=== PATIENT | female | born 1935 | race Hispanic/Latino ===

== ENCOUNTER 2018-06-29 19:53 | Emergency (ER) | payer OTHER, MEDICARE ==
[2018-06-29] MEDS ORDERED: NA CHLORIDE 0.9% 2,000 ML ONE (20:55)
--- NOTE | 2018-06-29 21:03 | RAD REPORT ---
EXAM DESCRIPTION: Ernie Single View06/29/2018 8:39 pm CLINICAL HISTORY: cough COMPARISON: 2008 FINDINGS: The lungs appear clear of acute infiltrate. The heart is normal size IMPRESSION: No acute abnormalities displayed
[2018-06-29 21:16] LABS: Albumin 4.3 g/dL (3.4-5.0); Bilirubin Direct 0.2 mg/dL (0-0.2); Bilirubin Total 0.6 mg/dL (0.2-1.0); Potassium 3.8 mmol/L (3.5-5.1); Protein, Total 8.3 g/dL (6.4-8.2); Troponin (Emerg Dept Use Only) 0.02 ng/mL (0.0-0.045)
[2018-06-29 21:44] LABS: Absolute Lymphocytes (CBC) 0.3 K/uL (0.7-4.9); Absolute Monocytes 0.7 K/uL (0.1-1.3); Absolute Neutrophil 5.1 K/uL (1.8-8.0); Basophils % 0.4 % (0-1.3); Eosinophils % 0.6 % (0-4.4); Hematocrit 42.4 % (36.0-45.0); Lymphocytes % 5.3 % (15.3-44.8); MPV 8.4 fL (7.6-11.3); Monocytes % 11.9 % (3.3-12.3); RBC Red Blood Cell Count 4.81 M/uL (3.86-4.86)
[2018-06-29 22:53] LABS: Urine Blood TRACE (NEG); Urine Glucose NEGATIVE (NEG); Urine Protein 2+ (NEG)
[2018-06-29 23:45] LABS: Urine Bacteria LOADED /HPF (<20); Urine Culture Reflex Order REFLEXED
--- NOTE | 2018-06-30 00:03 | EDPHYS ---
Physician Documentation [facility] Name: Desiree Pablo Age: 83 yrs Sex: Female : 1935 Arrival Date: 06/29/2018 Time: 19:56 Bed 28 Private MD: ED Physician Mikhail Javier HPI: 06/29 20:26 This 83 yrs old Female presents to ER via Wheelchair with complaints of Flu ps1 Symptoms. 20:26 patient states that she has not been feeling well over the last 3 days. Went to the ps1 and was flu negative but sent over for CXR 2/2 hearing rales on exam. Patient has increased fatigue and malaise over the last 24 hours. Not requiring O2. Got the flu shot this year. Has a cough. BP is elevated and known to patient, currently on antihypertensives and not c/o symptoms associated with it. . Historical: - Allergies: 20:26 No Known Allergies; tl3 - Home Meds: 20:26 Janumet XR 100-1,000 mg oral TM24 1 tab once daily for Type 2 Diabetes Mellitus tl3 [Active]; metoprolol tartrate 100 mg Oral tab 1 tab once daily [Active]; duloxetine 60 mg oral cpDR 1 cap once daily [Active]; atorvastatin 40 mg oral tab 1 tab once daily [Active]; levothyroxine 75 mcg tab 1 tab once daily for Hypothyroidism [Active]; losartan 100 mg oral tab 1 tab once daily for Hypertension [Active]; - PMHx: 20:26 Hypertension; Diabetes - NIDDM; Headaches; Hyperlipidemia; Hypothyroidism; tl3 - Immunization history:: Adult Immunizations up to date. - Social history:: Smoking status: Patient/guardian denies using tobacco, never smoked. - Ebola Screening: : No symptoms or risks identified at this time. ROS: 20:26 Eyes: Negative for injury, pain, redness, and discharge, Abdomen/GI: Negative for ps1 abdominal pain, nausea, vomiting, diarrhea, and constipation, Back: Negative for injury and pain, Skin: Negative for injury, rash, and discoloration, Neuro: Negative for headache, weakness, numbness, tingling, and seizure, Psych: Negative for depression, anxiety, suicide ideation, homicidal ideation, and hallucinations. 20:26 Constitutional: Positive for body aches, fatigue, malaise, poor PO intake. 20:26 Respiratory: Positive for cough, "sounds productive". Exam: 20:29 Constitutional: This is a well developed, well nourished patient who is awake, alert, ps1 and in no acute distress. Head/Face: Normocephalic, atraumatic. Eyes: Pupils equal round and reactive to light, extra-ocular motions intact. Lids and lashes normal. Conjunctiva and sclera are non-icteric and not injected. Chest/axilla: Normal chest wall appearance and motion. Nontender with no deformity. No lesions are appreciated. Cardiovascular: Regular rate and rhythm. No gallops, murmurs, or rubs. Normal PMI, no JVD. No pulse deficits. Abdomen/GI: Soft, non-tender, with normal bowel sounds. No distension or tympany. No guarding or rebound. No evidence of tenderness throughout. Skin: Warm, dry with normal turgor. Normal color with no rashes, no lesions, and no evidence of cellulitis. MS/ Extremity: Pulses equal, no cyanosis. Neurovascular intact. Full, normal range of motion. Neuro: Awake and alert, GCS 15, oriented to person, place, time, and situation. Cranial nerves II-XII grossly intact. Sensory grossly intact. 20:29 Respiratory: the patient does not display signs of respiratory distress, Respirations: normal, Breath sounds: rhonchi, are heard in the right lower lobe and left lower lobe. Vital Signs: 20:26 BP 204 / 99; Pulse 91; Resp 18; Temp 98.8(O); Pulse Ox 94% on R/A; Weight 68.04 kg; tl3 21:15 BP 193 / 86; Pulse 93; Resp 18; Pulse Ox 94% on R/A; tl3 22:15 BP 152 / 72; Pulse 91; Resp 18; Pulse Ox 96% on R/A; tl3 23:09 BP 160 / 75; Pulse 93; Resp 18; Pulse Ox 97% on R/A; tl3 03 00:15 BP 155 / 76; Pulse 92; Resp 18; Pulse Ox 95% on R/A; ca1 MDM: 06/29 20:24 Patient medically screened. ps1 06/29 20:23 Order name: Basic Metabolic Panel; Complete Time: 21:19 ps1 06/29 20:23 Order name: Blood Culture Adult (2) ps1 06/29 20:23 Order name: CBC with Diff; Complete Time: 22:07 ps1 06/29 20:23 Order name: LFT's; Complete Time: 21:19 ps1 06/29 20:23 Order name: Lipase; Complete Time: 21:19 ps1 06/29 20:23 Order name: Procalcitonin; Complete Time: 21:36 ps1 06/29 20:23 Order name: Troponin (emerg Dept Use Only); Complete Time: 21:19 ps1 06/29 20:24 Order name: Flu ps1 06/29 20:25 Order name: Influenza Screen (A ; Complete Time: 00:12 EDMS 06/29 22:25 Order name: UA MICROSCOPIC; Complete Time: 23:48 tl3 06/29 22:26 Order name: Urine Dipstick--Ancillary (enter results); Complete Time: 22:59 mw2 06/29 23:47 Order name: Urine Culture EDMS 06/29 20:23 Order name: Chest Single View XRAY; Complete Time: 21:19 ps1 06/29 20:23 Order name: Accucheck; Complete Time: 21:38 ps1 06/29 20:23 Order name: Cardiac monitoring; Complete Time: 21:02 ps1 06/29 20:23 Order name: EKG - Nurse/Tech; Complete Time: 21:37 ps1 06/29 20:23 Order name: IV Saline Lock - Large Bore; Complete Time: 20:52 ps1 06/29 20:23 Order name: Labs collected and sent; Complete Time: 20:52 ps1 06/29 20:23 Order name: O2 Per Protocol; Complete Time: 20:52 ps1 06/29 20:23 Order name: O2 Sat Monitoring; Complete Time: 20:52 ps1 06/29 20:23 Order name: Urine Dipstick-Ancillary (obtain specimen); Complete Time: 22:25 ps1 Administered Medications: 20:45 Drug: NS 0.9% (30 ml/kg) 30 ml/kg Route: IV; Rate: bolus; Site: left antecubital; tl3 Delivery: Primary tubing; 23:10 Follow up: IV Status: Completed infusion; IV Intake: 2000ml tl3 23:55 Drug: Rocephin - (cefTRIAXone) 1 grams Route: IVPB; Infused Over: 30 mins; Site: left ca1 antecubital; 06/30 00:02 Follow up: IV Status: Completed infusion; IVP per Pharmacy protocol ca1 Point of Care Testing: Blood Glucose: 06/29 20:45 Blood Glucose: 146 mg/dL; tl3 Ranges: Critical Glucose Levels:Adult <50 mg/dl or >400 mg/dl <40 mg/dl or >180 mg/dl Disposition: 06/30/18 00:02 Discharged to Home. Impression: Acute cystitis without hematuria. - Condition is Stable. - Discharge Instructions: Urinary Tract Infection, Adult. - Prescriptions for Keflex 500 mg Oral Capsule - take 1 capsule by ORAL route every 8 hours for 5 days; 15 capsule. Guaifenesin AC 10- 100 mg/5 mL Oral Liquid - take 10 milliliter by ORAL route every 4 hours As needed; 240 milliliter. - Medication Reconciliation Form, Thank You Letter, Antibiotic Education, Prescription Opioid Use form. - Follow up: Private Physician; When: As needed; Reason: Recheck today's complaints, Continuance of care, Re-evaluation by your physician. Follow up: Emergency Department; When: As needed; Reason: Worsening of condition. - Problem is new. - Symptoms have improved. Signatures: Dispatcher [employer] [facility] Mikhail Javier MD MD ps1 Skye Llanes, MIKAL RN tl3 Oriana Resendiz RN RN ca1 Corrections: (The following items were deleted from the chart) 20:29 20:26 patient states that she has not been feeling well over the last 3 days. Went to [facility] the and was flu negative but sent over for CXR 2/2 hearing rales on exam. Patient has increased fatigue and malaise over the last 24 hours. Not requiring O2. Got the flu shot this year. Has a cough. . [facility] 22:41 20:24 UA MICROSCOPIC+U.LAB.BRZ ordered. [facility] EDMT 06/30 00:28 00:02 06/30/2018 00:02 Discharged to Home. Impression: Acute cystitis without ca1 hematuria. Condition is Stable. Forms are Medication Reconciliation Form, Thank You Letter, Antibiotic Education, Prescription Opioid Use. Follow up: Private Physician; When: As needed; Reason: Recheck today's complaints, Continuance of care, Re-evaluation by your physician. Follow up: Emergency Department; When: As needed; Reason: Worsening of condition. Problem is new. Symptoms have improved. ps1
--- NOTE | 2018-06-30 00:03 | ER ---
Nurse's Notes [facility] Name: Desiree Pablo Age: 83 yrs Sex: Female : 1935 Arrival Date: 06/29/2018 Time: 19:56 Bed 28 Private MD: Diagnosis: Acute cystitis without hematuria Presentation: 06/29 20:17 Presenting complaint: Patient states: started coughing on Wednesday, progressively tl3 getting worse over the last couple of days, seen at [facility] Urgent care screened for flu (was negative), they heard crackles to the bases of her lungs and wanted her to get a chest x-ray. Transition of care: patient was not received from another setting of care. Onset of symptoms was June 2018. Risk Assessment: Do you want to hurt yourself or someone else? Patient reports no desire to harm self or others. Initial Sepsis Screen: Does the patient meet any 2 criteria? No. Patient's initial sepsis screen is negative. Does the patient have a suspected source of infection? No. Patient's initial sepsis screen is negative. Care prior to arrival: None. 20:17 Method Of Arrival: Wheelchair tl3 20:17 Acuity: ANANT 3 tl3 Triage Assessment: 20:26 General: Appears uncomfortable, slender, well groomed, well developed, well nourished, tl3 Behavior is calm, cooperative, appropriate for age. Pain: Denies pain. EENT: No signs and/or symptoms were reported regarding the EENT system. Neuro: Level of Consciousness is awake, alert, obeys commands. Cardiovascular: Patient's skin is warm and dry. Respiratory: Airway is patent Respiratory effort is even, unlabored, Respiratory pattern is regular, symmetrical, Breath sounds with crackles bilaterally. in left lower lobe, right lower lobe, left posterior lower lobe and right posterior lower lobe. GI: No signs and/or symptoms were reported involving the gastrointestinal system. : No signs and/or symptoms were reported regarding the genitourinary system. Derm: No signs and/or symptoms reported regarding the dermatologic system. Musculoskeletal: No signs and/or symptoms reported regarding the musculoskeletal system. Historical: - Allergies: 20:26 No Known Allergies; tl3 - Home Meds: 20:26 Janumet XR 100-1,000 mg oral TM24 1 tab once daily for Type 2 Diabetes Mellitus tl3 [Active]; metoprolol tartrate 100 mg Oral tab 1 tab once daily [Active]; duloxetine 60 mg oral cpDR 1 cap once daily [Active]; atorvastatin 40 mg oral tab 1 tab once daily [Active]; levothyroxine 75 mcg tab 1 tab once daily for Hypothyroidism [Active]; losartan 100 mg oral tab 1 tab once daily for Hypertension [Active]; - PMHx: 20:26 Hypertension; Diabetes - NIDDM; Headaches; Hyperlipidemia; Hypothyroidism; tl3 - Immunization history:: Adult Immunizations up to date. - Social history:: Smoking status: Patient/guardian denies using tobacco, never smoked. - Ebola Screening: : No symptoms or risks identified at this time. Screenin:29 Abuse screen: Denies threats or abuse. Nutritional screening: No deficits noted. tl3 Tuberculosis screening: No symptoms or risk factors identified. Fall Risk None identified. Assessment: 20:29 Reassessment: No changes from previously documented assessment. tl3 21:15 Reassessment: No changes from previously documented assessment. Patient and/or family tl3 updated on plan of care and expected duration. Pain level reassessed. Patient is alert, oriented x 3, equal unlabored respirations, skin warm/dry/pink. IV infusing without difficulty, family at bedside. 22:15 Reassessment: Patient appears in no apparent distress at this time. No changes from tl3 previously documented assessment. Patient and/or family updated on plan of care and expected duration. Pain level reassessed. Patient is alert, oriented x 3, equal unlabored respirations, skin warm/dry/pink. pt assisted bedside commode. 23:09 Reassessment: Patient appears in no apparent distress at this time. No changes from tl3 previously documented assessment. Patient and/or family updated on plan of care and expected duration. Pain level reassessed. Patient is alert, oriented x 3, equal unlabored respirations, skin warm/dry/pink. 06/30 00:15 Reassessment: Patient appears in no apparent distress at this time. Patient and/or ca1 family updated on plan of care and expected duration. Pain level reassessed. Patient is alert, oriented x 3, equal unlabored respirations, skin warm/dry/pink. Vital Signs: 06/29 20:26 BP 204 / 99; Pulse 91; Resp 18; Temp 98.8(O); Pulse Ox 94% on R/A; Weight 68.04 kg; tl3 21:15 BP 193 / 86; Pulse 93; Resp 18; Pulse Ox 94% on R/A; tl3 22:15 BP 152 / 72; Pulse 91; Resp 18; Pulse Ox 96% on R/A; tl3 23:09 BP 160 / 75; Pulse 93; Resp 18; Pulse Ox 97% on R/A; tl3 03 00:15 BP 155 / 76; Pulse 92; Resp 18; Pulse Ox 95% on R/A; ca1 ED Course: 06/29 19:56 Patient arrived in ED. ds1 20:09 Skye Llanes, MIKAL is Primary Nurse. tl3 20:12 Mikhail Javier MD is Attending Physician. ps1 20:20 Triage completed. tl3 20:26 Arm band placed on right wrist. tl3 20:29 Patient has correct armband on for positive identification. Placed in gown. Bed in low tl3 position. Call light in reach. Side rails up X 1. Pulse ox on. NIBP on. 20:29 No provider procedures requiring assistance completed. tl3 20:37 X-ray completed. Portable x-ray completed in exam room. Patient tolerated procedure ls3 well. 20:38 Chest Single View XRAY In Process Unspecified. EDMS 20:46 Inserted saline lock: 22 gauge in left antecubital area, using aseptic technique. Blood ca1 collected. 20:48 First set of blood cultures drawn by me. ca1 21:37 Flu Sent. tl3 06/30 00:27 IV discontinued, intact, bleeding controlled, No redness/swelling at site. Pressure ca1 dressing applied. Administered Medications: 06/29 20:45 Drug: NS 0.9% (30 ml/kg) 30 ml/kg Route: IV; Rate: bolus; Site: left antecubital; tl3 Delivery: Primary tubing; 23:10 Follow up: IV Status: Completed infusion; IV Intake: 2000ml tl3 23:55 Drug: Rocephin - (cefTRIAXone) 1 grams Route: IVPB; Infused Over: 30 mins; Site: left ca1 antecubital; 06/30 00:02 Follow up: IV Status: Completed infusion; IVP per Pharmacy protocol ca1 Point of Care Testing: Blood Glucose: 06/29 20:45 Blood Glucose: 146 mg/dL; tl3 Ranges: Intake: 23:10 IV: 2000ml; Total: 2000ml. tl3 Outcome: 06/30 00:02 Discharge ordered by . ps1 00:27 Discharged to home via wheelchair. ca1 00:27 Condition: stable 00:27 Discharge instructions given to patient, family, daughters Instructed on discharge instructions, follow up and referral plans. medication usage, Demonstrated understanding of instructions, follow-up care, medications, Prescriptions given X 2. 00:28 Patient left the ED. ca1 Addendum: 07/05/2018 09:10 Addendum: Culture Results: Positive urine culture. Contacted pt [id number] per a a5 Iain Page, [employer] and pt states symptoms have improved, pt also states she has follow-up appointment with Dr. Haney this morning. Urine Culture results faxed to Dr. Haney per pt's request. Signatures: Dispatcher [facility] Scha[facility], Jeri ds1 Anni Gonzales, RN RN aa5 Mikhail Javier MD MD ps1 Skye Llanes RN RN tl3 Luis Miguel Pedro ls3 Oriana Resendiz, RN RN ca1 Corrections: (The following items were deleted from the chart) 06/29 20:42 20:26 BP 204 / 99; Pulse 91bpm; Resp 18bpm; Pulse Ox 94% RA; Temp 98.8F Oral; tl3 tl3
[2018-06-30] MEDS ORDERED: CEFTRIAXONE/SWI 1gm 1 GM/10 ML SYR ONE (00:08)
--- NOTE | 2018-06-30 17:25 | EKG ---
Test Date: 2018-06-29 Test Time: 21:09:45 Watch Supervisor: MEASUREMENT RESULTS: Intervals: Rate: 94 WV: 186 QRSD: 74 QT: 410 QTc: 512 [place]: P: 66 WV: 186 QRS: 29 T: 49 INTERPRETIVE STATEMENTS: Normal sinus rhythm Nonspecific ST abnormality Prolonged QT Abnormal ECG Compared to ECG 10/29/2008 12:35:41 ST (T wave) deviation now present Prolonged QT interval now present Electronically Signed On 06-30-18 17:24:48 [employer] by Sekou Luo
== END 2018-06-30 00:28 | disposition home or self-care (01) ==
LOC: ER 19:53
DX: N30.00 Acute cystitis without hematuria (principal); I10 Essential (primary) hypertension; E11.9 Type 2 diabetes mellitus without complications; E03.9 Hypothyroidism, unspecified; E78.5 Hyperlipidemia, unspecified
CPT/HCPCS: 96365; 93005; 87040 ×2; 87088; 85025; 87086; 80048; 36415; 82962; 80076; 87077; 87186; 84484; 83690; 84145; 87804 ×2; 71045; 96375; 99284; 96366; J0696; J7030; 81003; 81015

== ENCOUNTER 2021-11-05 11:00 | Emergency (ER) | payer MEDICARE, OTHER ==
--- NOTE | 2021-11-05 11:34 | RAD REPORT ---
EXAM DESCRIPTION: CT - Ct Stroke Brain Wo Cont - 11/05/2021 11:25 am CLINICAL HISTORY: Left-sided weakness COMPARISON: none TECHNIQUE: Computed axial tomography of the head was obtained. All CT scans are performed using dose optimization technique as appropriate and may include automated exposure control or mA/KV adjustment according to patient size. FINDINGS: An intracranial bleed is not seen . The ventricles are normal in caliber. 6 millimeter peripherally calcified structure abuts the left sutherland perior orbital rim. There is no surrounding edema. It probably represents a meningioma. No extra-axial fluid collection is noted. Mild cerebral atrophy Mild low-density within periventricular, deep and subcortical white matter likely ischemic changes se condary to small vessel disease Fluid within the sinuses/ mastoids is not seen. IMPRESSION: No acute intracranial abnormality is seen. If patient's symptoms persist MRI of the bra in would be recommended. Tessa from the emergency Room was notified her approximately 11:13 a.m. November 05, 2021
[2021-11-05 12:00] LABS: Lymphocytes % 11.2 % (15.3-44.8); MCV 87.9 fL (80-100); MPV 8.1 fL (7.6-11.3); RBC Red Blood Cell Count 4.78 M/uL (3.86-4.86)
[2021-11-05 12:06] LABS: Potassium 4.7 mmol/L (3.5-5.1)
[2021-11-05 12:47] LABS: Protime INR 0.91
--- NOTE | 2021-11-05 12:51 | RAD REPORT ---
EXAM DESCRIPTION: RAD - Chest Single View - 11/05/2021 12:33 pm CLINICAL HISTORY: stroke protocol COMPARISON: Two view chest June 2018 TECHNIQUE: AP portable chest image was obtained 11/05/2021 12:33 pm . FINDINGS: Lung volumes are decreased compared to the 2019 study. Right hemidiaphragm again noted to be elevated relative to the left. No acute lung parenchymal process. Heart and vasculature are normal. No measurable pleural effusion and no pneumothorax. No acute bony abnormality seen. No acute aortic findings suspected. IMPRESSION: No acute cardiopulmonary process. No significant change from comparison study.
[2021-11-05] MEDS ORDERED: NA CHLORIDE 0.9% 500 ML ONE ×2 (13:31→16:53)
--- NOTE | 2021-11-05 13:56 | RAD REPORT ---
EXAM DESCRIPTION: MRI - Brain Wo Cont - 11/05/2021 1:25 pm CLINICAL HISTORY: Left leg weakness COMPARISON: Ct Stroke Brain Wo Cont dated 11/05/2021 TECHNIQUE: Sagittal T1-weighted images were obtained along with axial PD, heavily T2-weighted and T2 -FLAIR images. Axial DWI and ADC mapping sequences were also obtained along with coronal heavily T2-w eighted images. FINDINGS: No intracranial hemorrhage is present. There is no mass, edema or shift of midline structu res. Diffusion-weighted imaging shows several 7 mm or less sized areas of abnormal signal in the righ t cerebral hemisphere at the parietal lobe and frontal parietal junction. These all have correspondin g areas of diminished signal on ADC mapping. These changes are present in the setting of a mild to mo derate cerebral white matter chronic ischemic pattern. Moderate severity for age atrophy is present. Ventricles are in proportion to the amount of volume loss. Diffusion sequences show 2 questionable fo ci of signal abnormality in the posterolateral aspect of the left cerebellum. No definitive ADC mappi ng hypointense correlate. Cerebellum volume loss is minimal. Thalamus, basal ganglia and brainstem ch ronic ischemic changes are very minimal or absent. CSF along the right cerebellopontine angle is more prominent than on the left side. Signal is isoint ense to CSF on all sequencing. This is not a clearly defined mass and may be normal asymmetry. Nunez-m atter/white matter junction is preserved. Signal voids are seen as a normal finding in the major intr acranial vessels. No globe or orbital content abnormality seen. No sella or supra sella acute finding. Mastoid air cells and paranasal sinuses are clear. 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 No associated mass effect or ed donell. Two punctate areas of posterolateral left cerebellum signal abnormality on diffusion-weighted imaging are not definitive for acute CVA. Underlying moderate severity atrophy and moderate severity cerebral chronic ischemic change.
--- NOTE | 2021-11-05 14:20 | ER ---
Nurse's Notes [facility] [place] [place] [facility] Name: Desiree Pablo Age: 86 yrs Sex: Female : 1935 Arrival Date: 11/05/2021 Time: 11:06 Bed 2 Private MD: Diagnosis: Cerebral infarction, unspecified-Right cerebral white matter, parietal lobe and frontal parietal junction Presentation: 11/05 11:04 Chief complaint: EMS states: Pt reports that she his her L lower leg with her walker ha1 this morning at approximately 0830 and shortly after noticed her L foot felt heavy. Family member stated that patient seemed to be leaning to the L and all of these symptoms began lasted for 30 minutes. Pt has no complaints at this time other than tenderness to L lower extremity. NIHSS 0 upon arrival to ED. 11:04 Coronavirus screen: Client denies travel out of the [place] in the last 14 days. Ebola ss Screen: Patient denies exposure to infectious person. Patient denies travel to an Ebola-affected area in the 21 days before illness onset. No acute neurological deficit is noted. The patients blood glucose was checked before arriving to the hospital and was found to be normal. Initial Sepsis Screen: Does the patient meet any 2 criteria? No. Patient's initial sepsis screen is negative. Does the patient have a suspected source of infection? No. Patient's initial sepsis screen is negative. Risk Assessment: Do you want to hurt yourself or someone else? Patient reports no desire to harm self or others. Onset of symptoms was November 05, 2021 at 08:30. 11:04 Method Of Arrival: EMS: [facility] ss 11:04 Acuity: ANANT 2 ss Stroke Activation: Symptom onset < 3 hours Physician: Stroke Attending; Name: ; Notified At: ; Arrived At: Physician: Chief Stroke Resident; Name: ; Notified At: ; Arrived At: Physician: Stroke Resident; Name: ; Notified At: ; Arrived At: Physician: ED Attending; Name: ; Notified At: ; Arrived At: Physician: ED Resident; Name: ; Notified At: ; Arrived At: Historical: - Allergies: 11:20 Iodine; ha1 - PMHx: 11:20 Diabetes - NIDDM; Headaches; Hyperlipidemia; Hypertension; Hypothyroidism; ha1 - Social history:: Smoking status: Patient denies any tobacco usage or history of. Screenin:04 VAN Screening: Arm Drift: Patient shows no arm weakness. Visual Disturbance: No visual ss disturbance noted. Aphasia: No aphasia noted. Neglect: No neglect noted. Patient has been NPO before screening. The patient is alert, able to follow commands. The patient does not exhibit slurred or garbled speech The patient is not exhibiting difficulty speaking. The patient does not exhibit difficulty understanding words. The patient is able to swallow own secretions with no drooling or need for suction. The patient did not tolerate one teaspoon of water. Drooling, immediate coughing, gurgling, or clearing of the throat was noted. The patient tolerated 90mL of water. No drooling, immediate coughing, gurgling, or clearing of the throat was noted. The patient passed the bedside swallow screening. Oral medications may be given as ordered. Contact Physician for further diet orders. 11:38 Abuse screen: Denies threats or abuse. Denies injuries from another. Nutritional ss screening: No deficits noted. Tuberculosis screening: Never had TB. Fall Risk None identified. Assessment: 11:04 VAN Scoring: Visual Disturbance: No visual disturbance noted. Aphasia: No aphasia ss noted. Neglect: No neglect noted. TNKase (Tenecteplase) Screening: Contraindications: Other: No deficits at this time. 11:30 General: Appears in no apparent distress. comfortable, Behavior is calm, cooperative, ss Denies fever, feeling ill, fatigue, chills. Pain: Complains of pain in medial aspect of left calf Pain currently is 2 out of 10 on a pain scale. Quality of pain is described as tender, Pain began this aM Is continuous. Neuro: Level of Consciousness is awake, alert, obeys commands, Oriented to person, place, time, situation, Used Car Make Ready Mechanic are equal bilaterally Moves all extremities. Full function Speech is normal, Facial symmetry appears normal, Pupils are PERRLA, Intact. Cardiovascular: Capillary refill < 3 seconds is brisk in bilateral fingers Patient's skin is warm and dry. Respiratory: Airway is patent Trachea midline Respiratory effort is even, unlabored, Respiratory pattern is regular, symmetrical. GI: Abdomen is non-distended. Derm: Skin is pink, warm \T\ dry. Musculoskeletal: HX of scoliosis. Deformity noted to back that is consistent with hx. 11:30 : No signs and/or symptoms were reported regarding the genitourinary system. ss 13:12 Reassessment: Pt to MRI now VIA wheelchair. ss 14:30 Patient has been NPO before screening. The patient is alert, and able to follow ld1 commands. The patient does not exhibit slurred or garbled speech. The patient is not exhibiting difficulty speaking. The patient does not exhibit difficulty understanding words. The patient is able to swallow own secretions with no drooling or need for suction. Patient tolerated one teaspoon of water. No drooling, immediate coughing, gurgling, or clearing of the throat was noted. The patient tolerated 90mL of water. No drooling, immediate coughing, gurgling, or clearing of the throat was noted. The patient passed the bedside swallow screening. Oral medications may be given as ordered. Contact Physician for further diet orders. Provider notified of bedside swallow screening results: Iain Easton MD. 15:00 Reassessment: Patient appears in no apparent distress at this time. Patient and/or ld1 family updated on plan of care and expected duration. Pain level reassessed. Patient is alert, oriented x 3, equal unlabored respirations, skin warm/dry/pink. 17:00 Reassessment: Patient appears in no apparent distress at this time. No changes from ld1 previously documented assessment. Patient and/or family updated on plan of care and expected duration. Pain level reassessed. 18:45 Reassessment: ERP at bedside with family discussing plan of care and transfer. ld1 Vital Signs: 11:20 BP 158 / 74; Pulse 89; Resp 16; Temp 98.4; Pulse Ox 100% on R/A; Pain 4/10; ha1 12:37 BP 154 / 69; Pulse 66; Resp 16; ha1 13:55 BP 146 / 72; Pulse 87; Resp 17; Pulse Ox 99% on R/A; ld1 16:07 BP 141 / 74; Pulse 87; Resp 18; Pulse Ox 94% on R/A; ld1 16:39 BP 137 / 77; Pulse 84; Resp 18; Pulse Ox 100% on R/A; ld1 18:44 BP 153 / 66; Pulse 75; Resp 22; Pulse Ox 100% on R/A; ld1 NIH Stroke Scale Scores: 11:04 NIHSS Score: 0 ss 11:36 NIHSS Score: 0 pm1 19:02 NIHSS Score: 0 pm1 ED Course: 11:06 Patient arrived in ED. em6 11:08 Devendra Sanchez, CONTRACT CONSULTANT is PHCP. pm1 11:08 Iain Easton MD is Attending Physician. pm1 11:10 Patient has correct armband on for positive identification. Bed in low position. Call ss light in reach. Side rails up X2. Client placed on continuous cardiac and pulse oximetry monitoring. NIBP monitoring applied. Warm blanket given. 11:20 Arm band placed on right wrist. ha1 11:21 Inserted saline lock: 20 gauge in right antecubital area, using aseptic technique. zm Blood collected. 11:22 Basic Metabolic Panel Sent. zm 11:22 CBC with Diff Sent. zm 11:22 Protime (+inr) Sent. zm 11:22 Ptt, Activated Sent. zm 11:23 Phylicia Grace, RN is Primary Nurse. ha1 11:27 Josette Hoffmann, MIKAL is Primary Nurse. ss 11:27 CT Stroke Brain w/o Contrast In Process Unspecified. EDMS 11:27 Triage completed. ss 12:35 Stroke CXR 1 View In Process Unspecified. EDMS 13:14 MRI - Brain Wo Cont In Process Unspecified. EDMS 19:24 No provider procedures requiring assistance completed. Patient transferred, IV remains ld1 in place. Administered Medications: 13:34 Drug: NS 0.9% 500 ml Route: IV; Rate: bolus; Site: right antecubital; ss 15:02 Follow up: Response: No adverse reaction; IV Status: Completed infusion ha1 15:01 Drug: Aspirin 325 mg Route: PO; ha1 15:02 Drug: foLIC Acid 1 mg Route: IVPB; Site: right antecubital; ha1 15:02 Drug: Atorvastatin 40 mg Route: PO; ha1 17:10 Drug: NS 0.9% 500 ml Route: IV; Rate: bolus; Site: right antecubital; ld1 Medication: 11:04 VIS not applicable for this client. ss Outcome: 14:19 ER care complete, transfer ordered by . pm1 19:22 Patient left the ED. mw2 19:25 Transferred by ground EMS to [facility]. ld1 19:25 Condition: stable 19:25 Instructed on the need for transfer. NIH Stroke Scale - NIH Stroke Score Date: 11/05/2021 Time: 11:04 Total Score = 0 1a. Level of Consciousness (LOC) - 0(Alert) 1b. Level of Consciousness (LOC) (Month \T\ Age) - 0(Both) 1c. LOC Commands (Open \T\ Closes Eyes/Store Warehouse Associate) - 0(Both) 2. Best Gaze (Lateral Gaze Paresis) - 0(Normal) 3. Visual Field Loss - 0(No visual loss) 4. Facial Palsy - 0(Normal) 5a. Left Arm: Motor (10-second hold) - 0(No drift) 5b. Right Arm: Motor (10-second hold) - 0(No drift) 6a. Left Leg: Motor (5-second hold - always test supine) - 0(No drift) 6b. Right Leg: Motor (5-second hold - always test supine) - 0(No drift) 7. Limb Ataxia (finger/nose \T\ heel/olson - test with eyes open) - 0(Absent) 8. Sensory Loss (pinprick arms/legs/face) - 0(Normal) 9. Best Language: Aphasia (description/naming/reading) - 0(No aphasia) 10. Dysarthria (speech clarity - read or repeat words) - 0(Normal) 11. Extinction and Inattention (visual/tactile/auditory/spatial/personal) - 0(No abnormality) Initials: NIH Stroke Scale - NIH Stroke Score Date: 11/05/2021 Time: 11:36 Total Score = 0 1a. Level of Consciousness (LOC) - 0(Alert) 1b. Level of Consciousness (LOC) (Month \T\ Age) - 0(Both) 1c. LOC Commands (Open \T\ Closes Eyes/Store Warehouse Associate) - 0(Both) 2. Best Gaze (Lateral Gaze Paresis) - 0(Normal) 3. Visual Field Loss - 0(No visual loss) 4. Facial Palsy - 0(Normal) 5a. Left Arm: Motor (10-second hold) - 0(No drift) 5b. Right Arm: Motor (10-second hold) - 0(No drift) 6a. Left Leg: Motor (5-second hold - always test supine) - 0(No drift) 6b. Right Leg: Motor (5-second hold - always test supine) - 0(No drift) 7. Limb Ataxia (finger/nose \T\ heel/olson - test with eyes open) - 0(Absent) 8. Sensory Loss (pinprick arms/legs/face) - 0(Normal) 9. Best Language: Aphasia (description/naming/reading) - 0(No aphasia) 10. Dysarthria (speech clarity - read or repeat words) - 0(Normal) 11. Extinction and Inattention (visual/tactile/auditory/spatial/personal) - 0(No abnormality) Initials: pm1 NIH Stroke Scale - NIH Stroke Score Date: 11/05/2021 Time: 19:02 Total Score = 0 1a. Level of Consciousness (LOC) - 0(Alert) 1b. Level of Consciousness (LOC) (Month \T\ Age) - 0(Both) 1c. LOC Commands (Open \T\ Closes Eyes/Store Warehouse Associate) - 0(Both) 2. Best Gaze (Lateral Gaze Paresis) - 0(Normal) 3. Visual Field Loss - 0(No visual loss) 4. Facial Palsy - 0(Normal) 5a. Left Arm: Motor (10-second hold) - 0(No drift) 5b. Right Arm: Motor (10-second hold) - 0(No drift) 6a. Left Leg: Motor (5-second hold - always test supine) - 0(No drift) 6b. Right Leg: Motor (5-second hold - always test supine) - 0(No drift) 7. Limb Ataxia (finger/nose \T\ heel/olson - test with eyes open) - 0(Absent) 8. Sensory Loss (pinprick arms/legs/face) - 0(Normal) 9. Best Language: Aphasia (description/naming/reading) - 0(No aphasia) 10. Dysarthria (speech clarity - read or repeat words) - 0(Normal) 11. Extinction and Inattention (visual/tactile/auditory/spatial/personal) - 0(No abnormality) Initials: pm1 Signatures: Dispatcher [employer] EDJosette Steen RN RN ss Devendra Sanchez, KERRI CONTRACT CONSULTANT pm1 Mariaa Bernard mw2 Melissa Merchant RN RN ld1 Bev Coleman Heidy RN RN ha1 Jennifer Coleman RN RN em6
--- NOTE | 2021-11-05 14:20 | EDPHYS ---
Physician Documentation [facility] Name: Desiree Pablo Age: 86 yrs Sex: Female : 1935 Arrival Date: 11/05/2021 Time: 11:06 Bed 2 Private MD: ED Physician Iain Easton HPI: 11/05 11:36 This 86 yrs old Female presents to ER via EMS with complaints of S/S of pm1 Possible Stroke. 11:36 The patient's problem is reported as weakness, in the left lower extremity. Onset: The pm1 symptoms/episode began/occurred at 08:30. Duration: This was a single incident. Context: symptoms became apparent at 08:30. 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 Symptoms resolved after 30 minutes. The symptoms are aggravated by nothing. Associated signs and symptoms: Pertinent positives: Pain to left thigh and ankle. Severity of symptoms: in the emergency department the symptoms have resolved. Patient's baseline: Motor: no deficits, Ambulation: walks with assist only, uses walker, Speech: normal. The patient has not experienced similar symptoms in the past. The patient has not recently seen a physician, the patient's primary care provider is Dr. Haney. Historical: - Allergies: 11:20 Iodine; ha1 - PMHx: 11:20 Diabetes - NIDDM; Headaches; Hyperlipidemia; Hypertension; Hypothyroidism; ha1 - Social history:: Smoking status: Patient denies any tobacco usage or history of. ROS: 11:36 Constitutional: Negative for fever, chills, and weight loss, Eyes: Negative for injury, pm1 pain, redness, and discharge, ENT: Negative for injury, pain, and discharge, Cardiovascular: Negative for chest pain, palpitations, and edema, Respiratory: Negative for shortness of breath, cough, wheezing, and pleuritic chest pain, Abdomen/GI: Negative for abdominal pain, nausea, vomiting, diarrhea, and constipation, Back: Negative for injury and pain, MS/Extremity: Negative for injury and deformity, Skin: Negative for injury, rash, and discoloration. 11:36 Neuro: Positive for weakness, of the left leg, that has resolved, Negative for dizziness, headache, numbness, tingling. 11:36 All other systems are negative. Exam: 11:15 Radiologist reports: Negative CT brain pm1 11:15 Constitutional: This is a well developed, well nourished patient who is awake, alert, and in no acute distress. Head/Face: Normocephalic, atraumatic. 11:15 Eyes: Exam is negative for acute changes, Pupils: no acute changes, normal size, normal reaction to light, Extraocular movements: intact throughout, Conjunctiva: no acute changes, no injection, Sclera: no acute changes, icterus, is not appreciated. 11:15 Cardiovascular: Exam negative for acute changes, Rate: normal, Rhythm: regular, Pulses: no pulse deficits are appreciated, Heart sounds: normal. 11:15 Respiratory: Exam negative for acute changes, respiratory distress, shortness of breath, Breath sounds: are clear throughout. 11:15 Abdomen/GI: Exam negative for acute changes, Inspection: abdomen appears normal, Palpation: abdomen is soft and non-tender, in all quadrants. 11:15 Musculoskeletal/extremity: Exam is negative for acute changes, Extremities: all appear grossly normal, with no appreciated pain with palpation, ROM: no acute changes, Circulation is intact in all extremities. Sensation intact. 11:15 Neuro: Orientation: is normal, Mentation: is normal, Cranial nerves: CN II- XII are normal as tested, Cerebellar function: normal finger to nose testing, heel to olson testing is normal, Motor: moves all fours, strength is 5/5 in all extremities, Sensation: no obvious gross deficits. Vital Signs: 11:20 BP 158 / 74; Pulse 89; Resp 16; Temp 98.4; Pulse Ox 100% on R/A; Pain 4/10; ha1 12:37 BP 154 / 69; Pulse 66; Resp 16; ha1 13:55 BP 146 / 72; Pulse 87; Resp 17; Pulse Ox 99% on R/A; ld1 16:07 BP 141 / 74; Pulse 87; Resp 18; Pulse Ox 94% on R/A; ld1 16:39 BP 137 / 77; Pulse 84; Resp 18; Pulse Ox 100% on R/A; ld1 18:44 BP 153 / 66; Pulse 75; Resp 22; Pulse Ox 100% on R/A; ld1 NIH Stroke Scale Scores: 11:04 NIHSS Score: 0 ss 11:36 NIHSS Score: 0 pm1 19:02 NIHSS Score: 0 pm1 MDM: 11:08 Patient medically screened. pm1 11:29 ED course: Discussed with patient and her daughters treatment option for tenecteplase pm1 and benefits and risks. They did not want the tenecteplase because they were concerned about the bleeding risk since the patient's neurological examination was negative and she her symptoms have resolved, no weakness to left leg. They attributed to her history of scoliosis with some lumbar radiculopathy . 11:36 ED course: Discussed at length with the patient and her two daughters the clinical pm1 presentation and my examination. There is no weakness present on examination and the daughters agree that the is no clinical indication for thrombolytic. Patient with angioedema from iodine, will not perform a CTA. Therefore family and patient agree to MRI brain. 14:12 Physician consultation: Torrey Menendez MD regarding consult, patient's condition, pm1 after a discussion of the case, a recommendation for transfer for higher level of care is made. 14:14 Data reviewed: vital signs. Data interpreted: Pulse oximetry: on room air is 99 %. pm1 Interpretation: normal. 15:50 Physician consultation: Neurology Vera regarding regarding transfer, patient's pm1 condition, and will see patient. 16:08 Physician consultation: Hospitalist Morena regarding regarding transfer, patient's pm1 condition, and will see patient. 11/05 11:19 Order name: Basic Metabolic Panel; Complete Time: 12:11 1 11/05 11:19 Order name: CBC with Diff; Complete Time: 12:11 1 11/05 11:19 Order name: Protime (+inr); Complete Time: 13:19 ha1 11/05 11:19 Order name: Ptt, Activated; Complete Time: 13:19 1 11/05 11:32 Order name: Glucose, Ancillary Testing; Complete Time: 11:48 EDMS 11/05 15:27 Order name: SARS-COV-2 RT PCR (Document "Date of Onset" if Symptomatic); Complete Time: em1 16:58 11/05 11:19 Order name: CT Stroke Brain w/o Contrast; Complete Time: 11:48 ha1 11/05 11:19 Order name: Stroke CXR 1 View; Complete Time: 13:19 ha1 11/05 11:41 Order name: MRI - Brain Wo Cont; Complete Time: 14:00 pm11/05 11:19 Order name: EKG; Complete Time: 11:20 11/05 11:19 Order name: Accucheck; Complete Time: 11:11/05 11:19 Order name: Cardiac monitoring; Complete Time: 11:38 11/05 11:19 Order name: EKG - Nurse/Tech; Complete Time: 11/05 11:19 Order name: IV Saline Lock; Complete Time: 11:11/05 11:19 Order name: Labs collected and sent; Complete Time: 11:11/05 11:19 Order name: NPO; Complete Time: 11/05 11:19 Order name: O2 Per Protocol; Complete Time: 11/05 11:19 Order name: O2 Sat Monitoring; Complete Time: 11:38 11/05 11:19 Order name: Stroke Swallow Screen; Complete Time: 38 ha Administered Medications: 13:34 Drug: NS 0.9% 500 ml Route: IV; Rate: bolus; Site: right antecubital; ss 15:02 Follow up: Response: No adverse reaction; IV Status: Completed infusion ha1 15:01 Drug: Aspirin 325 mg Route: PO; ha1 15:02 Drug: foLIC Acid 1 mg Route: IVPB; Site: right antecubital; ha1 15:02 Drug: Atorvastatin 40 mg Route: PO; ha1 17:10 Drug: NS 0.9% 500 ml Route: IV; Rate: bolus; Site: right antecubital; ld1 Disposition Summary: 11/05/21 14:19 Transfer Ordered Transfer Location: [facility] pm1 Reason: Higher level of care pm1 Condition: Stable pm1 Problem: new pm1 Symptoms: have improved pm1 Accepting Physician: (11/05/21 19:22) mw2 Diagnosis - Cerebral infarction, unspecified - Right cerebral white matter, parietal lobe and pm1 frontal parietal junction Discharge Instructions: - Discharge Summary Sheet logan Forms: - Medication Reconciliation Form pm1 - SBAR form pm1 Prescriptions: - Centany 2 % Topical ointment - apply 1 application by TOPICAL route 3 times per day; 60 gram; Refills: 0, logan Product Selection Permitted NIH Stroke Scale - NIH Stroke Score Date: 11/05/2021 Time: 11:04 Total Score = 0 1a. Level of Consciousness (LOC) - 0(Alert) 1b. Level of Consciousness (LOC) (Month \\T\\ Age) - 0(Both) 1c. LOC Commands (Open \\T\\ Closes Eyes/Music Artist) - 0(Both) 2. Best Gaze (Lateral Gaze Paresis) - 0(Normal) 3. Visual Field Loss - 0(No visual loss) 4. Facial Palsy - 0(Normal) 5a. Left Arm: Motor (10-second hold) - 0(No drift) 5b. Right Arm: Motor (10-second hold) - 0(No drift) 6a. Left Leg: Motor (5-second hold - always test supine) - 0(No drift) 6b. Right Leg: Motor (5-second hold - always test supine) - 0(No drift) 7. Limb Ataxia (finger/nose \\T\\ heel/olson - test with eyes open) - 0(Absent) 8. Sensory Loss (pinprick arms/legs/face) - 0(Normal) 9. Best Language: Aphasia (description/naming/reading) - 0(No aphasia) 10. Dysarthria (speech clarity - read or repeat words) - 0(Normal) 11. Extinction and Inattention (visual/tactile/auditory/spatial/personal) - 0(No abnormality) Initials: NIH Stroke Scale - NIH Stroke Score Date: 11/05/2021 Time: 11:36 Total Score = 0 1a. Level of Consciousness (LOC) - 0(Alert) 1b. Level of Consciousness (LOC) (Month \\T\\ Age) - 0(Both) 1c. LOC Commands (Open \\T\\ Closes Eyes/Music Artist) - 0(Both) 2. Best Gaze (Lateral Gaze Paresis) - 0(Normal) 3. Visual Field Loss - 0(No visual loss) 4. Facial Palsy - 0(Normal) 5a. Left Arm: Motor (10-second hold) - 0(No drift) 5b. Right Arm: Motor (10-second hold) - 0(No drift) 6a. Left Leg: Motor (5-second hold - always test supine) - 0(No drift) 6b. Right Leg: Motor (5-second hold - always test supine) - 0(No drift) 7. Limb Ataxia (finger/nose \\T\\ heel/olson - test with eyes open) - 0(Absent) 8. Sensory Loss (pinprick arms/legs/face) - 0(Normal) 9. Best Language: Aphasia (description/naming/reading) - 0(No aphasia) 10. Dysarthria (speech clarity - read or repeat words) - 0(Normal) 11. Extinction and Inattention (visual/tactile/auditory/spatial/personal) - 0(No abnormality) Initials: pm1 NIH Stroke Scale - NIH Stroke Score Date: 11/05/2021 Time: 19:02 Total Score = 0 1a. Level of Consciousness (LOC) - 0(Alert) 1b. Level of Consciousness (LOC) (Month \\T\\ Age) - 0(Both) 1c. LOC Commands (Open \\T\\ Closes Eyes/Music Artist) - 0(Both) 2. Best Gaze (Lateral Gaze Paresis) - 0(Normal) 3. Visual Field Loss - 0(No visual loss) 4. Facial Palsy - 0(Normal) 5a. Left Arm: Motor (10-second hold) - 0(No drift) 5b. Right Arm: Motor (10-second hold) - 0(No drift) 6a. Left Leg: Motor (5-second hold - always test supine) - 0(No drift) 6b. Right Leg: Motor (5-second hold - always test supine) - 0(No drift) 7. Limb Ataxia (finger/nose \\T\\ heel/olson - test with eyes open) - 0(Absent) 8. Sensory Loss (pinprick arms/legs/face) - 0(Normal) 9. Best Language: Aphasia (description/naming/reading) - 0(No aphasia) 10. Dysarthria (speech clarity - read or repeat words) - 0(Normal) 11. Extinction and Inattention (visual/tactile/auditory/spatial/personal) - 0(No abnormality) Initials: pm1 Signatures: Dispatcher [employer] EDMS Josette Hoffmann RN RN Devenrda Ohara, DIRECTOR LIFE SALES DIRECTOR LIFE SALES pm1 Mariaa Bernard mw2 Melissa Merchant RN RN ld1 Phylicia Grace RN RN ha1 Corrections: (The following items were deleted from the chart) 16:19 11:36 ED course: Discussed at length with the patient and her two daughters the pm1 clinical presentation and my examination. There is no weakness present on examination and the daughters agree that the is no clinical indication for thrombolytic. Patient with angioedema from iodine, will not due a CTA. Therefore family and patient agree to MRI brain. pm1 19:22 14:19 pm1 mw2
[2021-11-05] MEDS ORDERED: ASPIRIN 325 MG TAB ONE (14:51)
[2021-11-05] MEDS ORDERED: ATORVASTATIN 20 MG TAB ONE (14:52)
[2021-11-05] MEDS ORDERED: FOLIC ACID 5 MG/ML VIAL ONE (14:54)
[2021-11-05 19:26] VITALS: TEMP 98.4
[2021-11-05 19:33] VITALS: O2SAT 100
[2021-11-05 19:35] VITALS: BP 153/66
--- NOTE | 2021-11-06 13:07 | EKG ---
Test Date: 2021-11-05 Test Time: 11:23:48 Wire Twister: ROSALVA MEASUREMENT RESULTS: Intervals: Rate: 90 MO: 150 QRSD: 76 QT: 372 QTc: 455 [place]: P: 32 MO: 150 QRS: 60 T: 102 INTERPRETIVE STATEMENTS: Sinus rhythm with fusion complexes Nonspecific ST and T wave abnormality Abnormal ECG Compared to ECG 06/29/2018 21:09:45 Fusion complex(es) now present Prolonged QT interval no longer present ST (T wave) deviation still present Electronically Signed On 11-06-21 13:06:15 CDT by Sai Rendon
== END 2021-11-05 19:22 | disposition short-term general hospital (02) ==
LOC: ER 11:00
DX: I63.9 Cerebral infarction, unspecified (principal); I10 Essential (primary) hypertension; R29.700 NIHSS score 0; E11.9 Type 2 diabetes mellitus without complications; Z91.048 Other nonmedicinal substance allergy status; Z20.822 Contact with and (suspected) exposure to COVID-19
CPT/HCPCS: 85025; 80048; 36415; 85610; 82947; 85730; 70450; 71045; 70551; U0003; J7040 ×2; 93005

== ENCOUNTER 2022-07-02 09:27 | Observation (INO) | payer OTHER ==
--- OUTSIDE RECORDS SUMMARY | 2022-07-02 09:30 | XMS REPORT | Continuity of Care Document ---
:1935 Author Organization [facility] t Address [address] [facility] [address] [facility] [place] [address] Care Team Providers Name Role Phone REDD DUNCAN Attending Clinician Unavailable REDD DUNCAN Admitting Clinician Unavailable Payers Payer Name Policy Type Policy Number Effective Date Expiration Date S logan [employer] [id number] 2021 O 00:00:00 Problems This patient has no known problems. Allergies, Adverse Reactions, Alerts Allergy Allergy Status Severity Reaction(s) Onset Inactive Treating Comm ents Source Name Type Date Date Clinician IODINE Allergy Active High Anaphylaxis [facility] SHELLFIS Allergy Active High [facility]aphylaxis [facility] 00 [facility] PRODUCTS Medications This patient has no known medications. Vital Signs Vital Name Observation Time Observation Value Comments Source HEIGHT 2021-11-06 00:03:00 157.5 cm WEIGHT 2021-11-06 00:03:00 63.095 kg HEIGHT 2021-11-06 00:03:00 157.5 cm WEIGHT 2021-11-06 00:03:00 63.095 kg Procedures This patient has no known procedures. Encounters Start End Encounter Admission Attending Care Care Encounter Source Date/Time Date/Time Type Type Clinicians Facility Department ID 2021-11-05 2021-11-10 Inpatient ER SELINA DUNCAN Neurology [id number] NABILA 20:29:00 15:32:00 REDD Results Test Description Test Time Test Comments Results Result Comments Source SARS-COV2/RT-PCR ([facility]) 2021-11-10 13:19:25 Test Item Value Reference Range Interpretation Comme nts SARS-COV2/RT-PCR (test code = Negative Negative The SARS-CoV-2 target nucleic [id number]) acids are not d etected in this specimen. Negat clementine results do not preclude SA RS-CoV-2 infection and s hould not be used as the sole bas is for patient management deci sions. Negative results must be combined with clinical observ ations, patient history, and ep idemiological information. A false negative result may occu r if a specimen is improperly c ollected, transported or handled. This SARS CoV-2 test is a rapid, real-time RT-PC R test intended for the qualita tive detection of nucleic acid fr om SARS-CoV-2 in a nasopharyngea l swab specimen collected from individuals suspected of CO VID-19 by their healthcare prov ider. This test has been authorized by FDA under an EUA for use by authorized laboratories. This test is only authorized for the duration of the declaration that circumstances exist justifying the authorization of emergency use of in vitro diagnostic tests for detection and/or diagnosis of COVID-19 under Section 564(b)(1) of the Federal Food, Drug and Cosmetic Act, 21 U.S.C. 360bbb-3(b)(1), unless the authorization is terminated or revoked sooner. Fact Sheet for Healthcare Providers: https://www.[employer] [employer] m/Documents/Xpert%20Xpress%20SARS%20CoV-2/Fact%20Sheets/3023802%45EBKB-ACV-9%20 HEALTHCARE%20PROVIDERS%20FACT%20SHEET.pdf Fact Sheet for Healthcare Patients: https://www.[employer]/Documents/Xpert%20Xp ress%20SARS%20CoV-2/Fact%20Sheets/3023801%24GTEK-XCT-6%20PATIENT%20FACT%20SHEET .pdfPOCT-GLUCOSE [id number] 12:19:58 Test Item Value Reference Range Interpretation Comments POC-GLUCOSE METER 167 mg/dL 70-110 H : TESTED A T [facility] [address] (B[employer]arket [employer] Information) (test code [facility] [address], = 1538) [place] [address] 384: Retail Attendant/Techni merly ID = [id number] for Fawn Davidson POCT-GLUCOSE [id number] 05:31:49 Test Item Value Reference Range Interpretation Comments POC-GLUCOSE METER 139 mg/dL 70-110 H : TESTED A T [facility] [address] (BEAKER) (test code [address], = 1538) [place] [address] 384: Retail Attendant/Techni merly ID = [id number] for Laurie Damon POCT-GLUCOSE [id number] 21:14:53 Test Item Value Reference Range Interpretation Comments POC-GLUCOSE METER 181 mg/dL 70-110 H : TESTED A T [facility] [address] (BEAKER) (test code [address], = 1538) [place] [address] 384: Retail Attendant/Techni merly ID = [id number] for Laurie Damon POCT-GLUCOSE [id number] 16:56:07 Test Item Value Reference Range Interpretation Comments POC-GLUCOSE METER 128 mg/dL 70-110 H : TESTED A T [facility] [address] (BEAKER) (test code [address], = 1538) [place] [address] 384: Retail Attendant/Techni merly ID = [id number] for A Amanda walker POCT-GLUCOSE [id number] 11:44:25 Test Item Value Reference Range Interpretation Comments POC-GLUCOSE METER 141 mg/dL 70-110 H : TESTED A T [facility] [address] (BEAKER) (test code [address], = 1538) [place] [address] 384: Retail Attendant/Techni merly ID = [id number] for A Amanda walker POCT-GLUCOSE [id number] 07:08:45 Test Item Value Reference Range Interpretation Comments POC-GLUCOSE METER 148 mg/dL 70-110 H : TESTED A T [facility] [address] (BEAKER) (test code [address], = 1538) [place] [address] 384: Retail Attendant/Techni merly ID = [id number] for Louise Vo POCT-GLUCOSE [id number] 21:11:30 Test Item Value Reference Range Interpretation Comments POC-GLUCOSE METER 181 mg/dL 70-110 H : TESTED A T [facility] [address] (BEAKER) (test code [address], = 1538) [place] [address] 384: Retail Attendant/Techni merly ID = [id number] for Louise Vo POCT-GLUCOSE [id number] 17:36:52 Test Item Value Reference Range Interpretation Comments POC-GLUCOSE METER 131 mg/dL 70-110 H : TESTED A T [facility] [address] (BEAKER) (test code [address], = 1538) [place] [address] 384: Retail Attendant/Techni merly ID = [id number] for Amanda Farrell POCT-GLUCOSE [id number] 12:23:47 Test Item Value Reference Range Interpretation Comments POC-GLUCOSE METER 181 mg/dL 70-110 H : TESTED A T [facility] [address] (BEAKER) (test code [address], = 1538) [place] [address] 384: Retail Attendant/Techni merly ID = [id number] for Amanda Farrell POCT-GLUCOSE [id number] 06:29:32 Test Item Value Reference Range Interpretation Comments POC-GLUCOSE METER 131 mg/dL 70-110 H : TESTED A T [facility] [address] (BEAKER) (test code [address], = 1538) [place] [address] 384: Retail Attendant/Techni merly ID = [id number] for D lance, Domi POCT-GLUCOSE [id number] 04:50:07 Test Item Value Reference Range Interpretation Comments POC-GLUCOSE METER 136 mg/dL 70-110 H : TESTED A T [facility] [address] (BEAKER) (test code [address], = 1538) [place] [address] 384: Retail Attendant/Techni merly ID = [id number] for Andres robertsJimmy carbajalita POCT-GLUCOSE [id number] 21:19:57 Test Item Value Reference Range Interpretation Comments POC-GLUCOSE METER 149 mg/dL 70-110 H : TESTED A T [facility] [address] (BEAKER) (test code [address], = 1538) [place] [address] 384: Retail Attendant/Techni merly ID = [id number] for D lance, Domi POCT-GLUCOSE [id number] 16:40:48 Test Item Value Reference Range Interpretation Comments POC-GLUCOSE METER 165 mg/dL 70-110 H : TESTED A T [facility] [address] (BEAKER) (test code [address], = 1538) [place] [address] 384: Retail Attendant/Techni merly ID = [id number] for R ossi, Heydi POCT-GLUCOSE [id number] 11:33:58 Test Item Value Reference Range Interpretation Comments POC-GLUCOSE METER 168 mg/dL 70-110 H : TESTED A T [facility] [address] (BEAKER) (test code [facility], = 1538) [place] [address] 384: Retail Attendant/Techni merly ID = [id number] for R ossi, Heydi POCT-GLUCOSE [id number] 05:47:40 Test Item Value Reference Range Interpretation Comments POC-GLUCOSE METER 122 mg/dL 70-110 H : TESTED A T [facility] [address] (BEAKER) (test code [facility], = 1538) [place] [address] 384: Retail Attendant/Techni merly ID = [id number] for Domi Blair CAROTID DOPPLER, [id number] 12:56:00Reason for exam:->stroke [facility] CENTERName: ABIMBOLA TODD : 1935 Sex: FFINAL REPORT Carotid arterial Doppler evaluation Clinical History: Stroke Discussion: Nunez-scale, color Doppler, and spectral waveform analysis evaluations of the bilateral extracranial carotid and vertebral arteries are obtained. The peak systolic velocity of the right and left internal carotid arteries are 66 and 108 cm/sec with systolic ratio of 1.0 and 1.1 to the common carotid arteries. Calcified plaque is noted in the left carotid bulb without flow-limiting stenosis. There is no elevation of the peak systolic velocities of the bilateral common carotid, external carotid, and internal carotid arteries. The carotid arterial waveforms are normal. Both vertebral arteries demonstrate normal antegrade flow and normal arterial waveforms. Impression: 1. No sonographic evidence of significant internal carotid arterial stenosis according to NASCET criteria. 2. Normal antegrade vertebral arterial flow. Signed: Carol Lazo MDReport Verified Date/Time: 11/06/2021 12:56:59 Reading Location: [facility] Radiology Reading Room POCT-GLUCOSE [id number] 12:16:56 Test Item Value Reference Range Interpretation Comments POC-GLUCOSE METER 145 mg/dL 70-110 H : TESTED A T [facility] [address] (BEAKER) (test code [facility], = 1538) [place] [address] 384: Retail Attendant/Techni merly ID = [id number] for R ossi, Heydi POCT-GLUCOSE [id number] 08:38:40 Test Item Value Reference Range Interpretation Comments POC-GLUCOSE METER 104 mg/dL 70-110 : TESTED A T [facility] [address] (BEAKER) (test code [facility], = 1538) [place] [address] 384: Retail Attendant/Techni merly ID = [id number] for R ossi, Hyedi BASIC METABOLIC [id number] 04:41:33 Test Item Value Reference Range Interpretation Comments SODIUM (BEAKER) 138 meq/L 135-148 (test code = 381) POTASSIUM (BEAKER) 4.6 meq/L 3.5-5.5 (test code = 379) CHLORIDE (BEAKER) 104 meq/L 98-106 (test code = 382) CO2 (BEAKER) (test 23 meq/L 20-31 code = 355) BLOOD UREA NITROGEN 29 mg/dL 10-26 H (BEAKER) (test code = 354) CREATININE (BEAKER) 1.41 mg/dL 0.50-1.20 H (test code = 358) GLUCOSE RANDOM 110 mg/dL 70-110 (BEAKER) (test code = 652) CALCIUM (BEAKER) 9.6 mg/dL 8.5-10.5 (test code = 697) EGFR (BEAKER) (test 35 mL/min/1.73 ESTIMA GABBY GFR IS code = 1092) sq m NOT ACCURATE CREATININE CLEARANCE IN PREDICTING GLOMERULAR FILTRATION RATE . ESTIMATED GFR I S NOT APPLICABLE FOR DIALYSIS PATIEN TS. Retail Attendant ID - [id number] 04:41:33 Test Item Value Reference Range Interpretation Comments TRIGLYCERIDES (BEAKER) (test code = 89 mg/dL 540) CHOLESTEROL (BEAKER) (test code = 101 mg/dL 631) HDL CHOLESTEROL (BEAKER) (test code 37 mg/dL = 976) LDL CHOLESTEROL CALCULATED (BEAKER) 46 mg/dL (test code = 633) Triglyceride Reference Range: Low Risk <150 Borderline 150-199 High Risk 200- 499 Very High Risk >=500Cholesterol Reference Range: Low Risk <200 Borderline 200-239 High Risk >240HDL Cholesterol Reference Range: Low Risk >=60 High Risk <40LDL Cholesterol Reference Range: Optimal <100 Near Optimal 100-129 Borderline 130-159 High 160-189 Very High >=190 Retail Attendant ID - [id number] 04:34:09 Test Item Value Reference Range Interpretation Comments HEMOGLOBIN A1C (BEAKER) (test code = 6.0 % 4.3-6.1 368) Retail Attendant ID - [id number] W/PLT COUNT & AUTO [id number] 03:54:33 Test Item Value Reference Range Interpretation Comments WHITE BLOOD CELL COUNT (BEAKER) 7.2 K/ L 4.0-10.0 (test code = 775) RED BLOOD CELL COUNT (BEAKER) 4.48 M/ L 4.00-5.00 (test code = 761) HEMOGLOBIN (BEAKER) (test code = 12.6 GM/DL 12.0-15.5 410) HEMATOCRIT (BEAKER) (test code = 41.8 % 36.0-46.0 411) MEAN CORPUSCULAR VOLUME (BEAKER) 93.3 fL 82.0-99.0 (test code = 753) MEAN CORPUSCULAR HEMOGLOBIN 28.1 pg 27.0-33.0 (BEAKER) (test code = 751) MEAN CORPUSCULAR HEMOGLOBIN CONC 30.1 GM/DL 32.0-36.0 L (BEAKER) (test code = 752) RED CELL DISTRIBUTION WIDTH 13.4 % 12.0-15.0 (BEAKER) (test code = 412) PLATELET COUNT (BEAKER) (test 264 K/CU MM 150-430 code = 756) MEAN PLATELET VOLUME (BEAKER) 9.6 fL 6.0-11.5 (test code = 754) NUCLEATED RED BLOOD CELLS 0 /100 WBC 0-0 (BEAKER) (test code = 413) NEUTROPHILS RELATIVE PERCENT 53 % (BEAKER) (test code = 429) LYMPHOCYTES RELATIVE PERCENT 31 % (BEAKER) (test code = 430) MONOCYTES RELATIVE PERCENT 11 % (BEAKER) (test code = 431) EOSINOPHILS RELATIVE PERCENT 3 % (BEAKER) (test code = 432) BASOPHILS RELATIVE PERCENT 1 % (BEAKER) (test code = 437) NEUTROPHILS ABSOLUTE COUNT 3.86 K/ L 1.80-8.00 (BEAKER) (test code = 670) LYMPHOCYTES ABSOLUTE COUNT 2.27 K/ L 1.48-4.50 (BEAKER) (test code = 414) MONOCYTES ABSOLUTE COUNT (BEAKER) 0.80 K/ L 0.00-1.30 (test code = 415) EOSINOPHILS ABSOLUTE COUNT 0.23 K/ L 0.00-0.50 (BEAKER) (test code = 416) BASOPHILS ABSOLUTE COUNT (BEAKER) 0.04 K/ L 0.00-0.20 (test code = 417) IMMATURE GRANULOCYTES-RELATIVE 0 % 0-0 PERCENT (BEAKER) (test code = 3238)
--- NOTE | 2022-07-02 10:07 | RAD REPORT ---
EXAM DESCRIPTION: RADChest Single View07/02/2022 10:00 am CLINICAL HISTORY: COUGH COMPARISON: Chest Single View dated 11/05/2021; Chest Pa And Lat (2 Views) dated 07/05/2018; Chest Sin gle View dated 06/29/2018; CHEST PA AND LAT 2 VIEW dated 10/29/2008 TECHNIQUE: Portable AP view of the chest. FINDINGS: Decreased inspiratory effort limits evaluation. The lungs show bibasilar mild streaky opac ities more prominent on the right. No pneumothorax or effusion. The cardiomediastinal contours are un remarkable. IMPRESSION: Mild bibasilar streaky opacities, could reflect atelectasis or early airspace disease.
[2022-07-02 10:44] LABS: Absolute Lymphocytes (CBC) 1.2 K/uL (0.7-4.9); Hematocrit 32.3 % (36.0-45.0); Lymphocytes % 22.6 % (15.3-44.8); MCV 91.3 fL (80-100); MPV 7.6 fL (7.6-11.3); RBC Red Blood Cell Count 3.53 M/uL (3.86-4.86)
[2022-07-02 10:53] LABS: Protime INR 1.05
[2022-07-02 11:05] LABS: Albumin 3.5 g/dL (3.4-5.0); Bilirubin Total 0.4 mg/dL (0.2-1.0); Potassium 4.2 mmol/L (3.5-5.1); Protein, Total 6.8 g/dL (6.4-8.2)
[2022-07-02 11:32] LABS: Urine Blood Trace-intact (Negative); Urine Glucose Negative (Negative); Urine Protein Trace (Negative); Urine Specific Gravity 1.015 (1.005-1.030)
[2022-07-02 11:34] LABS: SARS-COV-2 RT PCR POSITIVE (NEGATIVE)
[2022-07-02 11:51] LABS: Urine Bacteria 20-50 /HPF (<20); Urine Mucus Slight /HPF (None Seen); Urine RBC <5 /HPF (None Seen)
[2022-07-02] MEDS ORDERED: NA CHLORIDE 0.9% 500 ML ONE (12:04)
[2022-07-02] MEDS ORDERED: CEFTRIAXONE 1000 MG/VIAL ONE (12:04)
[2022-07-02 14:53] VITALS: O2SAT 99
[2022-07-02] MEDS ORDERED: ONDANSETRON 4 MG/2 ML VIAL IV PRN (15:45)
[2022-07-02] MEDS ORDERED: ACETAMINOPHEN 500 MG TAB PO PRN (15:45)
[2022-07-02] MEDS ORDERED: NACHLORIDE 0.45% 1,000 ML IV SCH (16:00)
[2022-07-02 16:01] VITALS: BMI 22.1
[2022-07-02] MEDS: NIRMATRELVIR/RITONAVIR TABLET PO SCH ×2 (16:30→20:49)
--- NOTE | 2022-07-02 21:30 | P.SSS ---
Patient History Date of Service: 07/02/22 Reason for admission: CHILLS, WEAK History of Present Illness: ABIMBOLA HAS THROAT PAIN AND CHILLS. TODAY SHE IS WORSE, NOT ABLE TO WALK FRO WEAKNESS. FAMILY CALLED TODAY TO HAVE HER SEEN. I SUSPECTED COVID I WANTED HER TO GET TO [facility] AND GET COVID TEST DONE. INSTEAD THEY CALLED AMBULANCE AND SHE IS IN ER NOW. I CAME TO SEE HER AT LUNCH TIME. SHE IS WEAK BUT HAS NO MUCH OF DISTRESS. Allergies egg Adverse Reaction (Verified 07/02/22 15:26) Nausea/Vomiting tomato Adverse Reaction (Verified 07/02/22 15:26) Nausea/Vomiting Home medications list reviewed: Yes - Past Medical/Surgical History Has patient received pneumonia vaccine in the past: No Diabetic: Yes -: DM -: HTN -: scoliosis -: tonsillectomy - Social History Smoking Status: Never smoker Alcohol use: No CD- Drugs: No Place of Residence: Home Review of Systems 10-point ROS is otherwise unremarkable General: Weakness Respiratory: As per HPI Physical Examination - Vital Signs Temperature: 97.2 F Blood Pressure: 130/61 Pulse: 60 Respirations: 18 Pulse Ox (%): 97 - Physical Exam General: Alert, Mild distress HEENT: Atraumatic, PERRLA, Mucous membr. moist/pink, EOMI, Sclerae nonicteric Neck: Supple, 2+ carotid pulse no bruit, No LAD, Without JVD or thyroid abnormality Respiratory: Clear to auscultation bilaterally, Normal air movement Cardiovascular: Regular rate/rhythm, Normal S1 S2 Gastrointestinal: Normal bowel sounds, No tenderness Musculoskeletal: No tenderness Integumentary: No rashes Neurological: Normal gait, Normal speech, Normal strength at 5/5 x4 extr, Normal tone, Normal affect Lymphatics: No axilla or inguinal lymphadenopathy - Studies Laboratory Data (last 24 hrs) 07/02/22 10:20: PT 11.5, INR 1.05, APTT 30.5 07/02/22 10:20: Sodium 133 L, Potassium 4.2, BUN 23 H, Creatinine 1.55 H, Glucose 94, Total Bilirubin 0.4, AST 18, ALT 13, Alkaline Phosphatase 74 07/02/22 10:20: WBC 5.50, Hgb 10.4 L, Hct 32.3 L, Plt Count 242 - Diagnosis (Problem(s)) (1) COVID-19 Current Visit: Yes Status: Acute Plan: I ASKED STRIPPING SHOVEL OPERATOR TO START PAXLOVID URGENTLY SHE WILL BE ABLE TO GO HOME IN AM THERE IS NO MAJOR REASON FOR ADMISSION BUT FAMILY INSISTED TO DR. HERNANDEZ. SHE IS MEDICALLY STABLE. (2) General weakness Current Visit: Yes Status: Acute Plan: START PT SHE IS USUALLY WALKER AND WC BOUND AT HOME FROM [place]. (3) Diabetes Current Visit: Yes Status: Chronic Plan: STABLE. A1C DONE FROM OFFICE. Qualifiers: Diabetes mellitus type: type 2 - Disposition Disposition: ROUTINE DISCHARGE
[2022-07-03] LABS: Specific Gravity 1.005 (1.005-1.030); Urine Bacteria <20 /HPF (<20); Urine Bilirubin NEGATIVE (Negative); Urine Blood Negative (Negative); Urine Clarity Clear (Clear); Urine Color Colorless (Yellow); Urine Glucose NEGATIVE (Negative); Urine Mucus Slight /HPF (None Seen); Urine Protein NEGATIVE (Negative); Urine Urobilinogen Normal (Normal); Urine WBC Clump Occasional /HPF (None Seen)
[2022-07-03 05:03] LABS: Absolute Lymphocytes (CBC) 1.5 K/uL (0.7-4.9); Hematocrit 30.1 % (36.0-45.0); Lymphocytes % 25.1 % (15.3-44.8); MCV 90.1 fL (80-100); MPV 7.8 fL (7.6-11.3); RBC Red Blood Cell Count 3.34 M/uL (3.86-4.86)
[2022-07-03 05:17] LABS: Bilirubin Direct 0.1 mg/dL (0-0.2); Bilirubin Total 0.4 mg/dL (0.2-1.0); Potassium 4.4 mmol/L (3.5-5.1); Protein, Total 6.1 g/dL (6.4-8.2)
[2022-07-03] MEDS ORDERED: CEFTRIAXONE 1,000 MG in NA CHLORIDE 0.9% 50 ML IVPB SCH ×2 (09:00→13:00)
[2022-07-03] MEDS: ENOXAPARIN 30 MG/0.3 ML SQ SCH (09:07)
[2022-07-03] MEDS: NIRMATRELVIR/RITONAVIR TABLET PO SCH ×2 (09:07→20:03)
[2022-07-03] MEDS: CEFUROXIME 250 MG TAB PO SCH ×2 (09:07→20:03)
[2022-07-03] MEDS ORDERED: GUAIFENESIN/DM 5 ML UCUP PO PRN (09:28)
[2022-07-03] MEDS ORDERED: ALBUTEROL 2.5 MG/3 ML NEB SOL NEB PRN ×2 (09:46→14:00)
--- NOTE | 2022-07-03 13:51 | P.PN ---
Subjective Date of Service: 07/03/22 Chief Complaint: CHILLS, WEAK Subjective: Improving SOME WHEEZES, GEN WEAK. Review of Systems 10-point ROS is otherwise unremarkable General: Weakness Physical Examination - Vital Signs Temperature: 97.0 F Blood Pressure: 126/65 Pulse: 90 Respirations: 18 Pulse Ox (%): 96 - Physical Exam General: Oriented x3 HEENT: Atraumatic, PERRLA, EOMI Neck: Supple, JVD not distended Respiratory: Diminished, Expiratory wheezes Cardiovascular: Regular rate/rhythm, Normal S1 S2 Gastrointestinal: Normal bowel sounds, No tenderness Musculoskeletal: No tenderness Integumentary: No rashes Neurological: Normal speech, Normal tone, Normal affect Lymphatics: No axilla or inguinal lymphadenopathy - Studies Medications List Reviewed: Yes Assessment And Plan - Current Problems (Diagnosis) (1) COVID-19 Current Visit: Yes Status: Acute Plan: I ASKED COMBATANT SWIMMER TO START PAXLOVID URGENTLY SHE WILL BE ABLE TO GO HOME IN AM THERE IS NO MAJOR REASON FOR ADMISSION BUT FAMILY INSISTED TO DR. HERNANDEZ. SHE IS MEDICALLY STABLE. (2) General weakness Current Visit: Yes Status: Acute Plan: START PT SHE IS USUALLY WALKER AND WC BOUND AT HOME FROM [place]. (3) Diabetes Current Visit: Yes Status: Chronic Plan: STABLE. A1C DONE FROM OFFICE. Qualifiers: Diabetes mellitus type: type 2 (4) Bronchitis Current Visit: Yes Status: Acute Plan: NEBS MILD NO NEED OF STEROIDS.
--- NOTE | 2022-07-04 08:57 | P.DS ---
Admission Date: 07/02/22 Discharge Date: 07/04/22 Disposition: DC HOME/HOME HEALTH CARE Discharge Condition: FAIR Reason for Admission: CHILLS, WEAK - Problems (1) COVID-19 Current Visit: Yes Status: Acute (2) General weakness Current Visit: Yes Status: Acute (3) Diabetes Current Visit: Yes Status: Chronic Qualifiers: Diabetes mellitus type: type 2 (4) Bronchitis Current Visit: Yes Status: Acute Brief History of Present Illness: ABIMBOLA HAS THROAT PAIN AND CHILLS. TODAY SHE IS WORSE, NOT ABLE TO WALK FRO WEAKNESS. FAMILY CALLED TODAY TO HAVE HER SEEN. I SUSPECTED COVID I WANTED HER TO GET TO [facility] AND GET COVID TEST DONE. INSTEAD THEY CALLED AMBULANCE AND SHE IS IN ER NOW. I CAME TO SEE HER AT LUNCH TIME. SHE IS WEAK BUT HAS NO MUCH OF DISTRESS. Hospital Course: ABIMBOLA HAS COVID. SHE IS DOING GREAT. SHE WALKED TO BATHROOM A FEW TIMES PER PT, TIAN. SHE HAS NO RESPIRATORY SYMPTOMS. SHE IS STABLE TO GO HOME WITH PAXLOVID AND CEFTIN FOR UTI. SHE WILL FU IN TWO WEEKS. I DISCUSSED ALL THESE WITH DAUGHTER YESTERDAY. TODAY SHE DID NOT BUSINESS CONTINUITY ANALYST THE PHONE-. MS. CERVANTES. Vital Signs/Physical Exam: Temp Pulse Resp BP Pulse Ox 96.9 F 70 18 144/60 H 94 07/04/22 08:00 07/04/22 08:00 07/04/22 08:00 07/04/22 08:00 07/04/22 08:00 General: Alert, In no apparent distress HEENT: Atraumatic, PERRLA, EOMI Neck: Supple, JVD not distended Respiratory: Clear to auscultation bilaterally, Normal air movement Cardiovascular: Regular rate/rhythm, Normal S1 S2 Gastrointestinal: Normal bowel sounds, No tenderness Musculoskeletal: No tenderness Integumentary: No rashes Neurological: Normal speech, Normal tone, Normal affect Lymphatics: No axilla or inguinal lymphadenopathy Laboratory Data at Discharge: WBC 6.00 K/uL (4.3-10.9) 07/03/22 04:29 Hgb 9.8 g/dL (12.0-15.0) L 07/03/22 04:29 Hct 30.1 % (36.0-45.0) L 07/03/22 04:29 Plt Count 226 K/uL (152-406) 07/03/22 04:29 PT 11.5 SECONDS (9.5-12.5) 07/02/22 10:20 INR 1.05 07/02/22 10:20 APTT 30.5 SECONDS (24.3-36.9) 07/02/22 10:20 Sodium 136 mmol/L (136-145) 07/03/22 04:29 Potassium 4.4 mmol/L (3.5-5.1) 07/03/22 04:29 BUN 23 mg/dL (7-18) H 07/03/22 04:29 Creatinine 1.41 mg/dL (0.55-1.02) H 07/03/22 04:29 Glucose 100 mg/dL (74-106) 07/03/22 04:29 Total Bilirubin 0.4 mg/dL (0.2-1.0) 07/03/22 04:29 AST 18 U/L (15-37) 07/03/22 04:29 ALT 13 U/L (13-56) 07/03/22 04:29 Alkaline Phosphatase 68 U/L (45-117) 07/03/22 04:29 Home Medications: Cefuroxime [Ceftin*] 250 mg PO BID #14 tab 07/03/22 Nirmatrelvir/Ritonavir [Paxlovid 2X150 mg-100 mg (Eua)] 1 packet PO BID #1 07/03/22 New Medications: Cefuroxime [Ceftin*] 250 mg PO BID #14 tab Nirmatrelvir/Ritonavir [Paxlovid 2X150 mg-100 mg (Eua)] 1 packet PO BID #1 Followup: Slim Haney MD [Primary Care Provider] -
[2022-07-04] MEDS: NIRMATRELVIR/RITONAVIR TABLET PO SCH (09:00)
[2022-07-04] MEDS: CEFUROXIME 250 MG TAB PO SCH (09:14)
[2022-07-04] MEDS: ENOXAPARIN 30 MG/0.3 ML SQ SCH (09:16)
[2022-07-04 11:48] VITALS: BP 136/63; TEMP 97
--- NOTE | 2022-07-06 13:18 | EKG ---
Test Date: 2022-07-02 Test Time: 09:54:10 System Administration Advisor: JESSY MEASUREMENT RESULTS: Intervals: Rate: 93 SD: 174 QRSD: 74 QT: 378 QTc: 469 [place]: P: 13 SD: 174 QRS: 30 T: 71 INTERPRETIVE STATEMENTS: Normal sinus rhythm Nonspecific ST and T wave abnormality Abnormal ECG Compared to ECG 11/05/2021 11:23:48 Fusion complex(es) no longer present ST (T wave) deviation still present Electronically Signed On 07-06-22 13:09:39 CDT by Sai Rendon
== END 2022-07-04 12:31 | disposition home health service (06) ==
LOC: ER 09:27 → ERHOLD 12:29 → 4TH 14:25
PROVIDERS: ADMIT Internal Medicine; ATTEND Internal Medicine
DX: U07.1 COVID-19 (principal); J40 Bronchitis, not specified as acute or chronic; R53.1 Weakness; E11.9 Type 2 diabetes mellitus without complications; Z91.012 Allergy to eggs; Z91.018 Allergy to other foods
CPT/HCPCS: 96365; 96361; 93005; 87040 ×2; 87088; 85025 ×2; 81001; 87086; 80048; 36415; 85610; 80076; 83605; 85730; 87077; 87186; 80053; 0240U; 71045; 97116 ×2; 97161; 97530; 94640; 99285; J7613 ×2; J1650 ×2; J7040; 81003; 81015

== ENCOUNTER 2023-12-01 01:07 | Inpatient (IN) | payer OTHER ==
[2023-12-01 02:41] LABS: Absolute Basophils 0.1 K/uL (0-0.5); Absolute Eosinophils 0.3 K/uL (0-0.5); Absolute Lymphocytes (CBC) 0.7 K/uL (0.7-4.9); Absolute Monocytes 0.6 K/uL (0.1-1.3); Absolute Neutrophil 7.7 K/uL (1.8-8.0); Basophils % 0.8 % (0-1.3); Eosinophils % 2.8 % (0-4.4); Hematocrit 36.5 % (36.0-45.0); Lymphocytes % 7.1 % (15.3-44.8); MCH 29.2 pg (27.0-35.0); MCHC 32.8 g/dL (32.0-36.0); MCV 89.2 fL (80-100); MPV 8.2 fL (7.6-11.3); Monocytes % 6.9 % (3.3-12.3); Neutrophils % 82.4 % (41.7-73.7); Platelets 258 thou/uL (152-406); RBC Red Blood Cell Count 4.09 M/uL (3.86-4.86); Red Cell Distribution Width 13.9 % (12.1-15.2)
[2023-12-01 02:42] LABS: SARS-CoV-2 Antigen CONTROL BLUE LINE VIS/BG OK; SARS-CoV-2 Antigen Rapid Res Positive (Negative)
[2023-12-01 02:42] LABS: PT Prothrombin Time 12.4 SECONDS (9.4-12.5); Protime INR 1.11
[2023-12-01 02:51] LABS: ALT/SGPT 17 U/L (13-56); AST/SGOT 16 U/L (15-37); Albumin 3.8 g/dL (3.4-5.0); Alkaline Phosphatase 94 U/L (45-117); Anion Gap 8.9 mEq/L (5.0-15.0); BUN Blood Urea Nitrogen 26 mg/dL (7-18); Bicarbonate 29 mEq/L (21-32); Bilirubin Total 0.6 mg/dL (0.2-1.0); Globulin 3.8 g/dL (2.3-3.5); Glomerular Filtration Rate 34 ml/min (=/>90); Glucose Level 131 mg/dL (74-106); Magnesium 1.9 mg/dL (1.6-2.4); NT PRO-BNP 3679 pg/mL (<450); Potassium 3.9 mEq/L (3.5-5.1); Protein, Total 7.6 g/dL (6.4-8.2); Sodium Level 136 mEq/L (136-145); Troponin High Sensitivity 41.5 pg/mL (<58.9)
--- NOTE | 2023-12-01 03:10 | ER ---
Nurse's Notes [facility] Name: Desiree Pablo Age: 88 yrs Sex: Female : 1935 Arrival Date: 12/01/2023 Time: 01:07 Bed 6 Private MD: Diagnosis: COVID-19, generalized weakness, dehydration Presentation: 11/30 01:15 Chief complaint: EMS states: she had a fall while in the bathroom and also complaining rg5 of generalized weakness. 01:15 Coronavirus screen: Vaccine status: Client denies travel out of the [place] in the last 14 rg5 days. Ebola Screen: Patient negative for fever greater than or equal to 101.5 degrees Fahrenheit, and additional compatible Ebola Virus Disease symptoms. Initial Sepsis Screen: Does the patient meet any 2 criteria? No. Patient's initial sepsis screen is negative. Does the patient have a suspected source of infection? No. Patient's initial sepsis screen is negative. Risk Assessment: Do you want to hurt yourself or someone else? Patient reports no desire to harm self or others. Onset of symptoms was December 01, 2023. 01:15 Method Of Arrival: EMS: [facility] rg5 01:15 Acuity: ANANT 3 rg5 Triage Assessment: 01:15 General: Appears in no apparent distress. comfortable, Behavior is calm, cooperative, rg5 appropriate for age. Pain: Denies pain. EENT: No deficits noted. Neuro: Level of Consciousness is awake, alert, Oriented to person, place. Cardiovascular: Heart tones S1 S2 Capillary refill < 3 seconds Patient's skin is warm and dry. Respiratory: Reports cough that is dry, since wednesday Airway is patent Trachea midline Respiratory effort is even, unlabored, Respiratory pattern is regular, symmetrical. GI: No signs and/or symptoms were reported involving the gastrointestinal system. Abdomen is round non-distended. : No signs and/or symptoms were reported regarding the genitourinary system. Derm: Skin is intact, Skin is dry, Skin is normal, Skin temperature is warm. Musculoskeletal: Circulation, motion, and sensation intact. Range of motion: intact in all extremities. Historical: - Allergies: 01:15 Iodine; rg5 - PMHx: 03:47 Diabetes - NIDDM; Headaches; Hypothyroidism; Hypertension; scoliosis; Hyperlipidemia; rg5 Cerebrovascular accident; - Immunization history:: Adult Immunizations up to date. - Infectious Disease History:: Denies. - Social history:: Smoking status: unknown. Screenin:15 [facility] ED Fall Risk Assessment (Adult) History of falling in the last 3 months, rg5 including since admission No falls in past 3 months (0 pts) Confusion or Disorientation No (0 pts) Intoxicated or Sedated No (0 pts) Impaired Gait Yes (1 pt) Mobility Assist Device Used Yes (1 pt) Altered Elimination No (0 pt) Score/Fall Risk Level 0 - 2 = Low Risk Oriented to surroundings, Maintained a safe environment, Educated pt \T\ family on fall prevention, incl call for assistance when getting out of bed, Hourly rounding (assess needs \T\ fall precautionary measures) done. 01:15 Abuse screen: Denies threats or abuse. Nutritional screening: No deficits noted. rg5 Tuberculosis screening: No symptoms or risk factors identified. Assessment: 01:15 Reassessment: SEE TRIAGE ASSESSMENT. rg5 Vital Signs: 01:15 BP 137 / 84; Pulse 84; Resp 16; Temp 97.9; Pulse Ox 100% on 2 lpm NC; Weight 54.43 kg; rg5 Height 5 ft. 1 in. ; Pain 0/10; 01:15 BP 137 / 84; Pulse 69; Resp 16; Temp 97.9; Pulse Ox 100% on 2 lpm NC; Weight 54.43 kg; rg5 Height 5 ft. 1 in. ; 10:33 BP 105 / 48; Pulse 76; Resp 16; Pulse Ox 99% on R/A; ld1 01:15 Body Mass Index 22.67 (54.43 kg, 154.94 cm) rg5 01:15 Pain Scale: Adult rg5 ED Course: 01:13 Patient arrived in ED. vc1 01:15 Arm band placed on left wrist. rg5 01:15 EKG completed in triage. Results shown to . rg5 01:15 Fall risk band placed. Bed in low position. Call light in reach. Side rails up X2. rg5 Adult w/ patient. 01:19 Vicky Dorsey MD is Attending Physician. sp3 01:42 Jian Enciso, RN is Primary Nurse. rg5 01:50 XRAY Chest (1 view) In Process Unspecified. EDMS 01:58 Triage completed. rg5 02:00 EKG done, by ED staff, reviewed by Vikcy Dorsey MD. oe 02:05 Basic Metabolic Panel Sent. ha1 02:05 CBC with Diff Sent. ha1 02:05 LFT's Sent. ha1 02:05 Magnesium Sent. ha1 02:05 NT PRO-BNP Sent. ha1 02:05 PT-INR Sent. ha1 02:05 Troponin HS Sent. ha1 02:06 Inserted saline lock: 22 gauge in left antecubital area, using aseptic technique. Blood oe collected. Flushed with 10 mL NS. 03:09 Slim Haney MD is Hospitalizing Provider. sp3 03:50 Awaiting bed assignment. rg5 03:50 Patient admitted, IV remains in place. intact, No redness/swelling at site. rg5 03:50 No provider procedures requiring assistance completed. rg5 03:51 Provided Education on: need for admit. rg5 11:13 Urinalysis w/ reflexes: DR HANEY REQUEST STRAIGHT CATH Sent. kb3 Administered Medications: No medications were administered Medication: 03:51 VIS not applicable for this client. rg5 Outcome: 03:09 Decision to Hospitalize by Provider. sp3 03:50 Admitted to ER Hold. Please see [facility] for further documentation. rg5 03:50 Condition: stable 03:50 Instructed on the need for admit, 11:40 Patient left the ED. ld1 Signatures: Dispatcher [employer] EDMS Keyur Dalton Lauren RN RN ld1 Vicky Dorsey MD MD sp3 Janet Garcia RN RN vc1 Phylicia Grace RN RN ha1 Elida Black, RN RN kb3 Jian Enciso, RN RN rg5
--- NOTE | 2023-12-01 03:11 | EDPHYS ---
Physician Documentation [facility] Name: Desiree Pablo Age: 88 yrs Sex: Female : 1935 Arrival Date: 12/01/2023 Time: 01:07 Bed 6 Private MD: ED Physician Vicky Dorsey HPI: 11/30 01:43 This 88 yrs old Female presents to ER via Unassigned with complaints of sp3 weakness, sore throat. 01:43 88-year-old female with history of scoliosis, diabetes presents to the ED with chief sp3 complaint generalized weakness after 48 hours of sore throat. Patient lives at an assisted living for her family who is also there taking care of her. She got up to use the restroom and had a slow controlled drop to the floor without significant injury. Due to these multiple chain of events, family brings her to the ED for evaluation. Patient denies any significant pain but states that she does feel weak overall. No objective fever reported. Review of systems negative for headache, chest pain, shortness of breath, abdominal pain, vomiting, diarrhea, bleeding, rash, or any other signs or symptoms on ROS at this time. Possible sick contact with grandson several days ago reported.. Historical: - Allergies: 01:15 Iodine; rg5 - PMHx: 03:47 Diabetes - NIDDM; Headaches; Hypothyroidism; Hypertension; scoliosis; Hyperlipidemia; rg5 Cerebrovascular accident; - Immunization history:: Adult Immunizations up to date. - Infectious Disease History:: Denies. - Social history:: Smoking status: unknown. ROS: 01:45 Eyes: Negative for injury, pain, redness, and discharge, Neck: Negative for injury, sp3 pain, and swelling, Cardiovascular: Negative for chest pain, palpitations, and edema, Respiratory: Negative for shortness of breath, cough, wheezing, and pleuritic chest pain, Abdomen/GI: Negative for abdominal pain, nausea, vomiting, diarrhea, and constipation, Back: Negative for injury and pain, MS/Extremity: Negative for injury and deformity, Skin: Negative for injury, rash, and discoloration, Neuro: Negative for headache, weakness, numbness, tingling, and seizure, Psych: Negative for depression, anxiety, suicide ideation, homicidal ideation, and hallucinations, Allergy/Immunology: Negative for hives, rash, and allergies, Endocrine: Negative for neck swelling, polydipsia, polyuria, polyphagia, and marked weight changes, 01:45 All other systems are negative, Exam: 01:45 Constitutional: This is a well developed, well nourished patient who is awake, alert, sp3 and in no acute distress. Head/Face: Normocephalic, atraumatic. Eyes: Pupils equal round and reactive to light, extra-ocular motions intact. Lids and lashes normal. Conjunctiva and sclera are non-icteric and not injected. Cornea within normal limits. Periorbital areas with no swelling, redness, or edema. ENT: Nares patent. No nasal discharge, no septal abnormalities noted. External auditory canals are clear. Oropharynx with no redness, swelling, or masses, exudates, or evidence of obstruction, uvula midline. Mucous membranes moist. Neck: Trachea midline, no thyromegaly or masses palpated, and no cervical lymphadenopathy. Supple, full range of motion without nuchal rigidity, or vertebral point tenderness. No Meningismus. Chest/axilla: Normal chest wall appearance and motion. Nontender with no deformity. No lesions are appreciated. Cardiovascular: Regular rate and rhythm with a normal S1 and S2. No gallops, murmurs, or rubs. Normal PMI, no JVD. No pulse deficits. Respiratory: Lungs have equal breath sounds bilaterally, clear to auscultation and percussion. No rales, rhonchi or wheezes noted. No increased work of breathing, no retractions or nasal flaring. Abdomen/GI: Soft, non-tender, with normal bowel sounds. No distension or tympany. No guarding or rebound. No evidence of tenderness throughout. Back: No spinal tenderness. No costovertebral tenderness. Full range of motion. Skin: Warm, dry with normal turgor. Normal color with no rashes, no lesions, and no evidence of cellulitis. MS/ Extremity: Pulses equal, no cyanosis. Neurovascular intact. Full, normal range of motion. Neuro: Awake and alert, GCS 15, oriented to person, place, time, and situation. Cranial nerves II-XII grossly intact. Motor strength 5/5 in all extremities. Sensory grossly intact. Cerebellar exam normal. Normal gait. Psych: Awake, alert, with orientation to person, place and time. Behavior, mood, and affect are within normal limits. Vital Signs: 01:15 BP 137 / 84; Pulse 84; Resp 16; Temp 97.9; Pulse Ox 100% on 2 lpm NC; Weight 54.43 kg; rg5 Height 5 ft. 1 in. ; Pain 0/10; 01:15 BP 137 / 84; Pulse 69; Resp 16; Temp 97.9; Pulse Ox 100% on 2 lpm NC; Weight 54.43 kg; rg5 Height 5 ft. 1 in. ; 10:33 BP 105 / 48; Pulse 76; Resp 16; Pulse Ox 99% on R/A; ld1 01:15 Body Mass Index 22.67 (54.43 kg, 154.94 cm) rg5 01:15 Pain Scale: Adult rg5 MDM: 01:19 Patient medically screened. sp3 01:46 Data reviewed: vital signs, nurses notes, lab test result(s), EKG, radiologic studies. sp3 ED course: 88-year-old female with PMH above now with generalized weakness and possible sick contact. Differential diagnosis is broad and includes viral illness, COVID-19, influenza, strep pharyngitis, pneumonia, early sepsis, acute coronary syndrome, electrolyte abnormality, among others. Patient is not septic or in shock. Vital signs are normal. Workup will include EKG, chest x-ray, swabs, laboratory values, UA, lactate, and general observation. Patient sees Dr. Haney as her PCP. If workup negative and patient is at her baseline, we will safely discharge patient home. Otherwise consider admission for any indicated pathology. Disposition pending workup and patient course.. 03:08 ED course: COVID-positive. Patient globally weak. Patient's daughter insisting on sp3 23-hour observation given her weakness. Will place under Dr. Haney service and he can disposition from there. Patient is weak on her feet objectively and I believe we will need observation criteria.. 11/30 01:20 Order name: Basic Metabolic Panel sp3 11/30 01:20 Order name: CBC with Diff; Complete Time: 03:06 sp3 11/30 01:20 Order name: LFT's sp3 11/30 01:20 Order name: Magnesium sp3 11/30 01:20 Order name: NT PRO-BNP sp3 11/30 01:20 Order name: PT-INR; Complete Time: 03:06 sp3 11/30 01:20 Order name: Troponin HS sp3 11/30 01:20 Order name: Lactate w/ 2H reflex if indic.; Complete Time: 03:06 sp3 11/30 01:20 Order name: UAM sp3 11/30 01:42 Order name: SARS RAPID; Complete Time: 03:06 sp3 11/30 01:42 Order name: Flu; Complete Time: 03:06 sp3 11/30 01:42 Order name: Strep sp3 11/30 02:50 Order name: Throat Culture EDMS 11/30 10:40 Order name: Urinalysis w/ reflexes: DR HANEY REQUEST STRAIGHT CATH ld1 11/30 11:38 Order name: Urinalysis w/ reflexes EDMO 11/30 01:20 Order name: XRAY Chest (1 view) sp3 11/30 01:20 Order name: EKG; Complete Time: 01:21 sp3 11/30 01:20 Order name: Cardiac monitoring; Complete Time: 01:51 sp3 11/30 01:20 Order name: EKG - Nurse/Tech; Complete Time: 01:51 sp3 11/30 01:20 Order name: IV Saline Lock; Complete Time: 02:05 sp3 11/30 01:20 Order name: Labs collected and sent; Complete Time: 02:05 sp3 11/30 01:20 Order name: O2 Per Protocol; Complete Time: 02:05 sp3 11/30 01:20 Order name: O2 Sat Monitoring; Complete Time: 02:05 sp3 Administered Medications: No medications were administered Disposition Summary: 12/01/23 03:09 Hospitalization Ordered Notes: Hospitalization Status: Observation sp3 Provider: Slim Haney sp3 Condition: Stable sp3 Problem: new sp3 Symptoms: have worsened sp3 Bed/Room Type: Standard sp3 Location: Telemetry/MedSurg (observation)(12/01/23 09:38) bd Room Assignment: 223(12/01/23 09:38) bd Diagnosis - COVID-19, generalized weakness, dehydration sp3 Forms: - Medication Reconciliation Form sp3 - SBAR form sp3 - Leadership Thank You Letter sp3 Signatures: Dispatcher [employer] EDMS Christa Molina Cindy, RN RN Vicky Hector MD MD sp3 Enciso, Jian, RN RN rg5 Corrections: (The following items were deleted from the chart) 01:21 01:21 BASIC METABOLIC PANEL+C.LAB.BRZ ordered. EDMS EDMS 01:21 01:21 CBC+H.LAB.BRZ ordered. EDMS EDMS 01:21 01:21 HEPATIC FUNCTION+C.LAB.BRZ ordered. EDMS EDMS 01:21 01:21 MAGNESIUM+C.LAB.BRZ ordered. EDMS EDMS 01:21 01:21 PROBNP+C.LAB.BRZ ordered. EDMS EDMS 01:21 01:21 PROTIME (+INR)+COAG.LAB.BRZ ordered. EDMS EDMS 01:21 01:21 Troponin High Sensitivity+C.LAB.BRZ ordered. EDMS EDMS 01:21 01:21 LACTATE+C.LAB.BRZ ordered. EDMS EDMS 01:21 01:21 Urinalysis W/Microscopic+U.LAB.BRZ ordered. EDMS EDMS 01:43 01:42 SARS-COV-2 Antigen Rapid+I.LAB.BRZ ordered. EDMS EDMS 01:43 01:42 Influenza Screen (A \T\ B)+BA.LAB.BRZ ordered. EDMS EDMS 01:43 01:42 Group A Streptococcus Rapid Sc+BA.LAB.BRZ ordered. EDMS EDMS 03:20 03:09 Telemetry/MedSurg (observation) sp3 cg 03:20 03:09 sp3 cg 09:38 03:20 [facility] ER HOLD cg bd 09:38 03:20 ERHOLD- cg bd
[2023-12-01 03:26] LABS: Bilirubin Direct < 0.2 mg/dL (0-0.2); Bilirubin Indirect, Calculated 0.4 mg/dL (0.2-0.8)
[2023-12-01] MEDS: NA CHLORIDE 0.9% 1,000 ML IV SCH (04:00)
[2023-12-01] MEDS ORDERED: NA CHLORIDE 0.9% 1,000 ML ONE (04:24)
[2023-12-01 04:57] LABS: Specific Gravity 1.015 (1.005-1.030); Sqamous Epithelial <5 /HPF (None Seen); Urine Bacteria None Seen /HPF (<20); Urine Bilirubin NEGATIVE (Negative); Urine Blood 1+ (Negative); Urine Clarity Extremely Turbid (Clear); Urine Color Light-Orange (Yellow); Urine Culture Reflex Order REFLEXED; Urine Glucose NEGATIVE (Negative); Urine Ketones NEGATIVE (Negative); Urine Micro Reflex YN NO BILL MICROSCOPIC; Urine Mucus Slight /HPF (None Seen); Urine Nitrite 2+ (Negative); Urine Protein TRACE (Negative); Urine Urobilinogen Normal (Normal); Urine WBC >50 /HPF (<5); Urine WBC Clump Few /HPF (None Seen)
[2023-12-01] MEDS: NIRMATRELVIR/RITONAVIR TABLET PO SCH (08:48)
[2023-12-01] MEDS ORDERED: NIRMATRELVIR/RITONAVIR TABLET PO SCH (09:00)
--- NOTE | 2023-12-01 10:21 | RAD REPORT ---
EXAM DESCRIPTION: XR Chest, 1 View CLINICAL HISTORY: The patient is 88 years old and is Female; weak TECHNIQUE: Frontal view of the chest. COMPARISON: No relevant prior studies available. FINDINGS: Lungs: Left basilar atelectasis. No consolidation. Pleural space: Blunting of the left costophrenic angle which may indicate a small left pleural ef fusion. No pneumothorax. Heart: Unremarkable. Mediastinum: Unremarkable. Normal mediastinal contour. Bones/joints: No acute findings. IMPRESSION: 1. Left basilar atelectasis. No consolidation. 2. Blunting of the left costophrenic angle which may indicate a small left pleural effusion. Electronically signed by: Donavan Beck MD 12/01/2023 02:49 AM CDT RP 8 Due to temporary technical issues with the PACS/Fluency reporting system, reports are being signed by the in house radiologists without review as a courtesy to insure prompt reporting. The interpreting radiologist is fully responsible for the content of the report.
[2023-12-01 11:34] LABS: Specific Gravity 1.011 (1.005-1.030); Sqamous Epithelial None Seen /HPF (None Seen); Urine Bacteria <20 /HPF (<20); Urine Bilirubin NEGATIVE (Negative); Urine Blood Negative (Negative); Urine Clarity Turbid (Clear); Urine Color Colorless (Yellow); Urine Culture Reflex Order REFLEXED; Urine Glucose TRACE (Negative); Urine Ketones NEGATIVE (Negative); Urine Microscopic Reflex YN ORDER UMIC; Urine Nitrite NEGATIVE (Negative); Urine Protein TRACE (Negative); Urine RBC <5 /HPF (None Seen); Urine Urobilinogen Normal (Normal); Urine WBC 20-50 /HPF (<5); Urine pH 7.5 (5.0-7.0)
[2023-12-01] MEDS: PNEUMOCOCCAL VACCINE 0.5 ML IMVAC ONE (12:24)
--- NOTE | 2023-12-01 12:24 | P.HP ---
Patient History Date of Service: 12/01/23 Reason for admission: WEAKNESS, COUGH History of Present Illness: ABIMBOLA IS AN 88 YEARS OLD LADY WHO COMES TO ER WITH WEAKNESS. SHE HAS COVID POS. SHE IS NOT HAVING ANY UTI SS. SHE HAS MILD COUGH AND NO DYSPNEA. Allergies iodine Allergy (Verified 12/01/23 05:17) Hives/Rash egg Adverse Reaction (Verified 07/02/22 15:26) Nausea/Vomiting tomato Adverse Reaction (Verified 07/02/22 15:26) Nausea/Vomiting Home medications list reviewed: Yes Home Medications: Cefuroxime [Ceftin*] 250 mg PO BID #14 tab 07/03/22 Nirmatrelvir/Ritonavir [Paxlovid 2X150 mg-100 mg] 1 packet PO BID #1 07/03/22 - Past Medical/Surgical History Has patient received pneumonia vaccine in the past: No Diabetic: Yes -: DM -: HTN -: scoliosis -: tonsillectomy - Social History Smoking Status: Unknown if ever smoked Alcohol use: No CD- Drugs: No Review of Systems 10-point ROS is otherwise unremarkable General: Weakness Physical Examination - Vital Signs Temperature: 97.9 F Blood Pressure: 182/77 Pulse: 87 Respirations: 18 Pulse Ox (%): 100 - Physical Exam General: Oriented x2, Mild distress HEENT: Atraumatic, PERRLA, Mucous membr. moist/pink, EOMI, Sclerae nonicteric Neck: Supple, 2+ carotid pulse no bruit, No LAD, Without JVD or thyroid abnormality Respiratory: Clear to auscultation bilaterally, Normal air movement Cardiovascular: Regular rate/rhythm, Normal S1 S2 Gastrointestinal: Normal bowel sounds, No tenderness Musculoskeletal: No tenderness Integumentary: No rashes Neurological: Normal gait, Normal speech, Normal strength at 5/5 x4 extr, Normal tone, Normal affect Lymphatics: No axilla or inguinal lymphadenopathy - Studies Laboratory Data (last 24 hrs) 12/01/23 12/01/23 12/01/23 02:03 02:03 02:03 WBC 9.30 Hgb 12.0 Hct 36.5 Plt Count 258 PT 12.4 INR 1.11 Sodium 136 Potassium 3.9 BUN 26 H Creatinine 1.47 H Glucose 131 H Magnesium 1.9 Total Bilirubin 0.6 AST 16 ALT 17 Alkaline Phosphatase 94 Microbiology Data (last 24 hrs): 12/01/23 01:58 Throat Group A Streptococcus Rapid Screen - Final 12/01/23 01:58 Nasopharnyx Influenza Type A Antigen Screen - Final 12/01/23 01:58 Nasopharnyx Influenza Type B Antigen Screen - Final Assessment and Plan - Problems (Diagnosis) (1) Abnormal urinalysis Current Visit: Yes Status: Acute Plan: ST CATH URINE IS LOT BETTER THAN BED MUSTAFA SAMPLE SHE HAS NO SS. JUST SHE IS HERE AT [facility], I WILL GIVE MILD ANTIBIOTIC UNTIL CULTURE COMES IN. (2) COVID-19 Current Visit: No Status: Acute Plan: PAXLOVID STARTED SHE IS STABLE. SHE COULD GO HOME BUT FAMILY IS NOT ABLE TO TAKE CARE OF HER. ADVISE [employer]LECT[employer] TO HELP. (3) General weakness Current Visit: No Status: Chronic Plan: WORSE WITH COVID. (4) Diabetes Current Visit: No Status: Chronic Plan: [facility] FU AT OFFICE. DIET CONTROL CHECK A1C LAST ONE WAS 5.8 Qualifiers: Diabetes mellitus type: type 2 - Advance Directives Does patient have a Living Will: No Does patient have a Durable POA for Healthcare: No
[2023-12-01 13:24] LABS: Thyroid Stimulating Hormone 0.189 uIU/mL (0.358-3.740)
[2023-12-01] MEDS: ACETAMINOPHEN 325 MG TABLET PO PRN (16:57)
[2023-12-01] MEDS: CEFUROXIME 250 MG TAB PO SCH (21:31)
[2023-12-02] MEDS: LOSARTAN POTASSIUM 50 MG TABLET ONE (04:33)
[2023-12-02] MEDS: LOSARTAN POTASSIUM 50 MG TABLET PO SCH (04:38)
[2023-12-02] MEDS: cloNIDine HCL 0.1 MG TAB PO PRN (06:51)
[2023-12-02] MEDS: ENOXAPARIN 40 MG/0.4 ML SQ SCH (07:57)
[2023-12-02] MEDS: HYDROCHLOROTHIAZIDE PO SCH (09:00)
[2023-12-02] MEDS: LOSARTAN PO SCH (09:00)
[2023-12-02] MEDS: METOPROLOL TAR 50 MG TAB PO SCH (09:26)
[2023-12-02] MEDS: DULOXETINE 30 MG CAP PO SCH (09:26)
[2023-12-02] MEDS: LIOTHYRONINE SOD 5 MCG TAB PO SCH (09:26)
--- NOTE | 2023-12-02 13:10 | EKG ---
Test Date: 2023-12-01 Test Time: 01:52:55 Reservoir Caretaker: JESSICA MEASUREMENT RESULTS: Intervals: Rate: 72 AL: 158 QRSD: 116 QT: 440 QTc: 481 [place]: P: AL: 158 QRS: 107 T: 101 INTERPRETIVE STATEMENTS: Normal sinus rhythm Right bundle branch block Abnormal ECG Compared to ECG 07/02/2022 09:54:10 Right bundle-branch block now present ST (T wave) deviation no longer present Electronically Signed On 12-02-23 13:05:53 CDT by Sai Rendon
[2023-12-02 16:56] VITALS: O2SAT 100
[2023-12-02] MEDS: METFORMIN HCL PO SCH (21:00)
[2023-12-02] MEDS: [UNRECOGNIZED DRUG - OTHER] PO SCH (21:00)
[2023-12-02] MEDS: ATORVASTATIN 40 MG TAB PO SCH (21:01)
[2023-12-03 02:54] VITALS: BMI 27.6
[2023-12-03] MEDS: LEVOTHYROXINE SOD 0.075 MG TAB PO SCH (05:16)
--- NOTE | 2023-12-03 15:35 | P.PN ---
Subjective Date of Service: 12/03/23 Chief Complaint: WEAKNESS, COUGH Patient denies any pain. She reports generalized weakness. Physical Examination - Vital Signs Temperature: 97.5 F Blood Pressure: 127/59 Pulse: 66 Respirations: 16 Pulse Ox (%): 95 - Physical Exam General: Alert, In no apparent distress, Oriented x3, Obese HEENT: Mucous membr. moist/pink Neck: Supple, JVD not distended Respiratory: Clear to auscultation bilaterally, Normal air movement Cardiovascular: No edema, Regular rate/rhythm, Normal S1 S2 Gastrointestinal: Normal bowel sounds, Soft and benign, Non-distended, No tenderness Musculoskeletal: No swelling Integumentary: No rashes, No cyanosis Neurological: Normal strength at 5/5 x4 extr Assessment And Plan - Current Problems (Diagnosis) (1) Acute cystitis without hematuria Current Visit: Yes Status: Acute (2) COVID-19 Current Visit: No Status: Acute (3) Diabetes Current Visit: No Status: Chronic Qualifiers: Diabetes mellitus type: type 2 (4) General weakness Current Visit: No Status: Chronic - Plan Acute cystitis without hematuria Urine culture is growing gram-negative rods. Continue cefuroxime Follow urine culture result. COVID-19 Chest x-ray suggests no consolidative. Stable oxygen saturation. Continue Paxlovid. Generalized weakness Likely related to the UTI and COVID infection. Continue PT. Patient plan for skilled rehab placement Diabetes mellitus type 2 Continue Januvia Essential hypertension Continue home antihypertensives. DVT prophylaxis: Lovenox. Advance directive: Full code
[2023-12-03] MEDS: CHLORASEPTIC LOZENGES PO SCH (22:05)
[2023-12-04 06:37] LABS: Absolute Eosinophils 0.3 K/uL (0-0.5); Absolute Lymphocytes (CBC) 1.8 K/uL (0.7-4.9); Absolute Monocytes 0.6 K/uL (0.1-1.3); Absolute Neutrophil 2.4 K/uL (1.8-8.0); Basophils % 0.4 % (0-1.3); Eosinophils % 5.8 % (0-4.4); Hematocrit 35.8 % (36.0-45.0); Hemoglobin 11.8 g/dL (12.0-15.0); Lymphocytes % 35.8 % (15.3-44.8); MCHC 32.9 g/dL (32.0-36.0); MCV 88.2 fL (80-100); MPV 7.7 fL (7.6-11.3); Monocytes % 11.1 % (3.3-12.3); Neutrophils % 46.9 % (41.7-73.7); Nucleated Red Blood Cells % 0.1 % (0-0); Platelets 213 thou/uL (152-406); RBC Red Blood Cell Count 4.06 M/uL (3.86-4.86); Red Cell Distribution Width 13.7 % (12.1-15.2)
[2023-12-04 06:47] LABS: Anion Gap 6.8 mEq/L (5.0-15.0); Potassium 3.8 mEq/L (3.5-5.1)
--- NOTE | 2023-12-04 12:27 | P.PN ---
Subjective Date of Service: 12/04/23 Chief Complaint: WEAKNESS, COUGH Patient denies any complaint. She is tolerating diet.. No recorded fever. Physical Examination - Vital Signs Temperature: 97.6 F Blood Pressure: 176/71 Pulse: 64 Respirations: 16 Pulse Ox (%): 100 - Physical Exam General: Alert, In no apparent distress, Oriented x3 HEENT: Mucous membr. moist/pink, Sclerae nonicteric Neck: Supple, JVD not distended Respiratory: Clear to auscultation bilaterally, Normal air movement Cardiovascular: No edema, Regular rate/rhythm, Normal S1 S2 Gastrointestinal: Normal bowel sounds, Soft and benign, Non-distended, No tenderness Musculoskeletal: No swelling Integumentary: No rashes, No cyanosis Neurological: Normal strength at 5/5 x4 extr - Studies Microbiology Data (last 24 hrs): 12/01/23 04:40 Clean Catch Urine [place] Count - Final >100,000 CFU/ML. 12/01/23 04:40 Clean Catch Urine - Final Assessment And Plan - Current Problems (Diagnosis) (1) Acute cystitis without hematuria Current Visit: Yes Status: Acute (2) COVID-19 Current Visit: No Status: Acute (3) Diabetes Current Visit: No Status: Chronic Qualifiers: Diabetes mellitus type: type 2 (4) General weakness Current Visit: No Status: Chronic - Plan Acute cystitis without hematuria Urine culture: Mixed growth Continue cefuroxime. Patient to complete 5 days of treatment. COVID-19 Chest x-ray suggests no consolidative. Stable oxygen saturation. Wean off oxygen. Continue Paxlovid. Generalized weakness Likely related to the UTI and COVID infection. Continue PT. Patient plan for skilled rehab placement Diabetes mellitus type 2 Continue Januvia Essential hypertension Continue home antihypertensives. DVT prophylaxis: Lovenox. Advance directive: Full code
--- NOTE | 2023-12-05 13:50 | P.PN ---
Subjective Date of Service: 12/05/23 Chief Complaint: WEAKNESS, COUGH Patient has no new complaint. She is tolerating room air with good oxygen saturation. No recorded fever. Physical Examination - Vital Signs Temperature: 97.0 F Blood Pressure: 129/62 Pulse: 71 Respirations: 16 Pulse Ox (%): 97 - Physical Exam General: Alert, In no apparent distress, Oriented x3 HEENT: Mucous membr. moist/pink, Sclerae nonicteric Neck: Supple, JVD not distended Respiratory: Clear to auscultation bilaterally, Normal air movement Cardiovascular: No edema, Regular rate/rhythm, Normal S1 S2 Gastrointestinal: Normal bowel sounds, Soft and benign, Non-distended, No tenderness Musculoskeletal: No swelling Integumentary: No rashes, No cyanosis Neurological: Normal strength at 5/5 x4 extr Assessment And Plan - Current Problems (Diagnosis) (1) Acute cystitis without hematuria Current Visit: Yes Status: Acute (2) COVID-19 Current Visit: No Status: Acute (3) Diabetes Current Visit: No Status: Chronic Qualifiers: Diabetes mellitus type: type 2 (4) General weakness Current Visit: No Status: Chronic - Plan Acute cystitis without hematuria Urine culture: Mixed growth Continue cefuroxime. Patient to complete 5 days of treatment. COVID-19 Chest x-ray suggests no consolidative. Stable oxygen saturation. Patient is tolerating room air. Continue Paxlovid. Generalized weakness Likely related to the UTI and COVID infection. Continue PT. Patient plan for skilled rehab placement Diabetes mellitus type 2 Continue Januvia Essential hypertension Continue home antihypertensives. DVT prophylaxis: Lovenox. Advance directive: Full code
[2023-12-06 11:03] LABS: Absolute Eosinophils 0.3 K/uL (0-0.5); Absolute Lymphocytes (CBC) 1.6 K/uL (0.7-4.9); Absolute Monocytes 0.6 K/uL (0.1-1.3); Absolute Neutrophil 4.8 K/uL (1.8-8.0); Basophils % 0.4 % (0-1.3); Hematocrit 34.5 % (36.0-45.0); MCH 28.6 pg (27.0-35.0); MCHC 31.9 g/dL (32.0-36.0); MCV 89.8 fL (80-100); MPV 7.8 fL (7.6-11.3); Monocytes % 7.9 % (3.3-12.3); Neutrophils % 65.7 % (41.7-73.7); Platelets 199 thou/uL (152-406); RBC Red Blood Cell Count 3.84 M/uL (3.86-4.86); Red Cell Distribution Width 14.1 % (12.1-15.2)
[2023-12-06 11:23] LABS: Anion Gap 9.6 mEq/L (5.0-15.0); Potassium 3.6 mEq/L (3.5-5.1)
--- NOTE | 2023-12-06 12:19 | P.DS ---
Admission Date: 12/03/23 Discharge Date: 12/06/23 Disposition: TRANSFER TO SNF - REHAB Discharge Condition: FAIR Reason for Admission: WEAKNESS, COUGH - Problems (1) Acute cystitis without hematuria Current Visit: Yes Status: Acute (2) COVID-19 Current Visit: No Status: Acute (3) Diabetes Current Visit: No Status: Chronic Qualifiers: Diabetes mellitus type: type 2 (4) General weakness Current Visit: No Status: Chronic Brief History of Present Illness: 88-year-old woman with a history of hypertension and diabetes presented to the emergency department with a complaint of cough, shortness of breath and generalized weakness. Evaluation in the ED showed patient has COVID infection. Chest x-ray showed left basilar atelectasis and possible left small pleural effusion, no infiltrate. UA suggested the presence of UTI. Patient was hospitalized for further management. Hospital Course: Patient was admitted to the medical floor and the following medical problems addressed: Acute cystitis without hematuria Urine culture: Mixed growth Patient completed 5-day history of oral Cefuroxime. She was asymptomatic. COVID-19 Chest x-ray suggested no consolidative. Her oxygen saturation was stable on room air Patient was treated with Paxlovid. Generalized weakness Likely related to the UTI and COVID infection. Patient was evaluated by PT and skilled rehab recommended She is clinically stable for discharge Diabetes mellitus type 2 Continued Januvia Essential hypertension Continued home antihypertensives except hydrochlorothiazide. Added hydralazine as needed for BP spikes. Hyponatremia Likely secondary to dehydration and hydrochlorothiazide use. Hydrochlorothiazide discontinued Vital Signs/Physical Exam: Temp Pulse Resp BP Pulse Ox 97.7 F 67 20 193/53 H 92 12/06/23 08:00 12/06/23 09:30 12/06/23 08:00 12/06/23 09:30 12/06/23 08:00 General: Alert, In no apparent distress, Oriented x3 HEENT: Mucous membr. moist/pink Neck: JVD not distended Respiratory: Clear to auscultation bilaterally, Normal air movement Cardiovascular: No edema, Regular rate/rhythm, Normal S1 S2 Gastrointestinal: Normal bowel sounds, Soft and benign, Non-distended, No tenderness Musculoskeletal: No swelling, No tenderness Integumentary: No rashes, No cyanosis Neurological: Normal strength at 5/5 x4 extr Laboratory Data at Discharge: WBC 7.20 thou/uL (4.3-10.9) 12/06/23 10:51 Hgb 11.0 g/dL (12.0-15.0) L 12/06/23 10:51 Hct 34.5 % (36.0-45.0) L 12/06/23 10:51 Plt Count 199 thou/uL (152-406) 12/06/23 10:51 PT 12.4 SECONDS (9.4-12.5) 12/01/23 02:03 INR 1.11 12/01/23 02:03 Sodium 138 mEq/L (136-145) 12/06/23 10:51 Potassium 3.6 mEq/L (3.5-5.1) 12/06/23 10:51 BUN 16 mg/dL (7-18) 12/06/23 10:51 Creatinine 1.12 mg/dL (0.55-1.02) H 12/06/23 10:51 Glucose 204 mg/dL (74-106) H 12/06/23 10:51 Magnesium 1.9 mg/dL (1.6-2.4) 12/01/23 02:03 Total Bilirubin 0.6 mg/dL (0.2-1.0) 12/01/23 02:03 AST 16 U/L (15-37) 12/01/23 02:03 ALT 17 U/L (13-56) 12/01/23 02:03 Alkaline Phosphatase 94 U/L (45-117) 12/01/23 02:03 LDL Cholesterol Direct 41 mg/dL (100-129) L 12/01/23 12:34 Home Medications: Atorvastatin Calcium 1 tab PO BEDTIME 12/01/23 Duloxetine HCl [Cymbalta] 1 cap PO DAILY 12/01/23 Levothyroxine [Synthroid*] 75 mcg PO BASPE8ST 12/01/23 Liothyronine Sodium [Cytomel] 1 tab PO DAILY 12/01/23 Metoprolol Tartrate 1 tab PO BID 12/01/23 Sitagliptin Phos/Metformin HCl [Janumet Xr 100-1,000 mg Tablet] 1 tab PO BEDTIME 12/01/23 Hydralazine HCl 10 mg PO QID PRN #30 tab 12/06/23 Losartan Potassium [Cozaar*] 50 mg PO DAILY 12/06/23 New Medications: Hydralazine HCl 10 mg PO QID PRN #30 tab PRN Reason: SBP>160 Diet: AHA Activity: Fall precautions Followup: Slim Haney MD [Primary Care Provider] - 1-2 Weeks Time spent managing pt's care (in minutes): 35
[2023-12-06 17:12] VITALS: BP 123/56; TEMP 97.3
== END 2023-12-06 18:21 | DRG 689 ==
LOC: ER 01:07 → ERHOLD 03:10 → 2ND 09:58 → OBSVTOIN 12-03 10:45
PROVIDERS: ADMIT Emergency Medicine; ATTEND Internal Medicine
DX: N30.00 Acute cystitis without hematuria (principal); U07.1 COVID-19; E87.1 Hypo-osmolality and hyponatremia; E11.9 Type 2 diabetes mellitus without complications; M41.9 Scoliosis, unspecified; I10 Essential (primary) hypertension; E78.5 Hyperlipidemia, unspecified; E03.9 Hypothyroidism, unspecified; E86.0 Dehydration; T50.2X5A Adverse effect of carbonic-anhydrase inhibitors, benzothiadiazides and other diuretics, initial encounter; Z91.012 Allergy to eggs; Z86.73 Personal history of transient ischemic attack (TIA), and cerebral infarction without residual deficits; Z91.018 Allergy to other foods; Z91.048 Other nonmedicinal substance allergy status; Z79.890 Hormone replacement therapy; Z79.899 Other long term (current) drug therapy
CPT/HCPCS: 36415; 71045; 80048; 80076; 81001; 82607; 82947; 83036; 83605; 83735; 83880; 84443; 84484; 85025; 85610; 87070; 87081; 87086; 87088; 87804; 87811; 93005; 97110; 97116; 97161; 97530; 99285; G0378; J1650; J7030; J8499